=== PATIENT | male | born 1945 | race Caucasian/White ===

== ENCOUNTER 2018-10-04 05:45 | Emergency (ER) | payer OTHER ==
--- OUTSIDE RECORDS SUMMARY | 2018-10-04 05:47 | XMS REPORT | Clinical Summary ---
:1945 Author Organization [facility] Address [address] [place] [address] Care Team Providers Name Role Phone Jeffrey Primary Care Provider Allergies Active Allergy Reactions Severity Noted Date Comments Levofloxacin Itching, Rash Low 06/09/2016 Medications Medication Sig Dispensed Refills Start Date End Date Status atorvastatin 40 mg every evening 0 05/13/2016 Active (LIPITOR) 40 MG . tablet furosemide (LASIX) 40 Take 80 mg by mouth 0 05/18/2016 Active MG tablet daily . cyclobenzaprine Take 20 mg by mouth 0 Active (FLEXERIL) 10 MG as needed for Muscle tabletIndications: spasms . Muscle Spasm metFORMIN Take 1,000 mg by 0 Active (GLUCOPHAGE) 1000 MG mouth 2 (two) times tablet daily with breakfast and dinner. losartan (COZAAR) 50 Take 50 mg by mouth 0 Active MG tablet daily. gabapentin Take 300 mg by mouth 0 Active (NEURONTIN) 300 MG as needed . capsule acetaminophen-codeine Take 1 tablet by 0 Active (TYLENOL #3) 300-30 mouth every 4 (four) mg per tablet hours as needed for Pain. glimepiride (AMARYL) Take 4 mg by mouth 0 Active 4 MG tablet every morning before breakfast. MELOXICAM ORAL Take 10 mg by mouth 0 Active daily. clopidogrel (PLAVIX) Take 75 mg by mouth 0 Active 75 mg tablet daily. insulin 70/30, Inject 18 Units 0 Active insulin NPH-insulin subcutaneously 2 regular, (HUMULIN (two) times daily 70/30,NOVOLIN 70/30) before meals PER 100 unit/mL (70-30) SLIDING SCALE . injection Active Problems Problem Noted Date Status post amputation of lesser toe, right 08/28/2016 Overview: post op- amputation hallux 2nd toe, right foot Non-healing surgical wound, subsequent encounter 08/28/2016 Overview: Non healing wound post amputation 2nd digit, right foot. PAD (peripheral artery disease) 08/28/2016 PVD (peripheral vascular disease) 06/09/2016 Social History Tobacco Use Types Packs/Day Years Used Date Current Some Day Smoker 0.5 10 Smokeless Tobacco: Never Used Tobacco Cessation: Ready to Quit: No; Counseling Given: Yes Alcohol Use Drinks/Week oz/Week Comments Yes 6 Standard drinks or equivalent 3.0 Sex Assigned at Date Recorded Not on file Job Start Date Occupation Industry Not on file Not on file Not on file Travel History Travel Start Travel End No recent travel history available. Last Filed Vital Signs Not on file Plan of Treatment Not on file Implants Implanted Type Area Rig Manager Device Shelf Model / Identifier Expiration Serial / Lot Date Stent Epic [id number] - [id number] Stents-Per Right: WEED [id number] / Implanted: Qty: 1 on 06/10/2016 by Aman Colunga MD ipheral Leg SCI: PERIPHERAL / INTERV [id number] Grft José Mrtrstm 200mg [id number] - [id number] Tissue Right: [employer] 2017 [id number] / Implanted: Qty: 1 on 06/12/2016 by Antoine Mac, DPM Graft/Subs Foot / titute [id number] Tissue Nucell Lg W/Matrix Nc-1002 - [id number] Tissue Right: NUTECH MED NC-1002 / Implanted: Qty: 1 on 06/12/2016 by Antoine Mac, DPM Graft/Subs Foot / titute [id number] Grft José Mrtrstm 500 Mg [id number] - [id number] Tissue Right: [employer] [id number] / Implanted: Qty: 1 on 08/28/2016 by Antoine Mac, DPM Graft/Subs Toe [id number] / titute [id number] Tissue Nucell Med W/Matrix Nc-1001 - [id number] Tissue Right: NUTE[employer] MED 03/05/2017 NC-1001 / Implanted: Qty: 1 on 08/28/2016 by Antoine Mac DPM Graft/Subs Toe [id number] / titute Results Not on fileafter 10/03/2017 Insurance Payer Benefit Plan / Group Subscriber ID Type Phone Address CARE IMPROVEMENT MEDICARE MGD CARE IMPROVEMENT PLUS xxxxxxxxx CARE Advance Directives For more information, please contact:[address] [phone] Code Status Date Activated Date Inactivated Comments Full Code 06/10/2016 4:34 PM 06/13/2016 7:26 PM This code status was determined by: Patient Full Code 06/09/2016 8:54 PM 06/10/2016 4:34 PM This code status was determined by: Patient
[2018-10-04] MEDS ORDERED: IPRATROPIUM BROM 0.5MG/2.5ML ONE (06:09)
[2018-10-04] MEDS ORDERED: LEVALBUTEROL 1.25 MG/3 ML NEB ONE (06:10)
[2018-10-04 07:15] LABS: Absolute Lymphocytes (CBC) 1.6 K/uL (0.7-4.9); Absolute Monocytes 0.7 K/uL (0.1-1.3); Absolute Neutrophil 7.7 K/uL (1.8-8.0); Basophils % 1.2 % (0-1.3); Eosinophils % 6.9 % (0-4.4); Hematocrit 44.5 % (39.6-49.0); Lymphocytes % 14.5 % (15.3-44.8); MCH 30.8 pg (27.0-35.0); MCV 94.1 fL (80-100); MPV 10.3 fL (7.6-11.3); Monocytes % 6.8 % (3.3-12.3); RBC Red Blood Cell Count 4.72 M/uL (4.33-5.43)
[2018-10-04 07:16] LABS: Protime INR 0.99
[2018-10-04 07:52] LABS: Troponin I 0.03 ng/mL (0.0-0.045)
--- NOTE | 2018-10-04 08:34 | RAD REPORT ---
EXAM DESCRIPTION: Tiago Single View10/04/2018 7:19 am CLINICAL HISTORY: Cough COMPARISON: 2016 FINDINGS: The lungs appear clear of acute infiltrate. The heart is normal size IMPRESSION: No acute abnormalities displayed
--- NOTE | 2018-10-04 10:23 | RAD REPORT ---
EXAM DESCRIPTION: CT - Chest For Pe Angio - 10/04/2018 10:08 am CLINICAL HISTORY: Chest pain. dyspnea COMPARISON: No comparisons TECHNIQUE: CT angiogram of the pulmonary arteries was performed with MIP. All CT scans are performed using dose optimization technique as appropriate and may include automated exposure control or mA/KV adjustment according to patient size. FINDINGS: No evidence of pulmonary thromboembolism. No acute aortic finding demonstrated. Mild interstitial pulmonary edema. The heart is mildly enlarged in size. No significant pericardial or pleural fluid. Prominent degenerative changes are present involving the thoracic spine. IMPRESSION: No evidence of pulmonary thromboembolism. Mild interstitial pulmonary edema.
--- NOTE | 2018-10-04 10:44 | ER ---
Nurse's Notes [facility] Name: Chad Reyna Jr Age: 72 yrs Sex: Male : 1945 Arrival Date: 10/04/2018 Time: 05:46 Bed 18 Private MD: Diagnosis: Pulmonary edema-mild CHF;Unspecified combined systolic (congestive) and diastolic (congestive) heart failure;Bronchitis, not specified as acute or chronic Presentation: 10/04 05:45 Presenting complaint: Patient states: that he has been having cough with sputum for fc over one week with shortness of breath that is getting worse. Denies and fever. Positive for mid back pain. Transition of care: patient was not received from another setting of care. Onset of symptoms was September 27, 2018. Risk Assessment: Do you want to hurt yourself or someone else? Patient reports no desire to harm self or others. Initial Sepsis Screen: Does the patient meet any 2 criteria? No. Patient's initial sepsis screen is negative. Does the patient have a suspected source of infection? No. Patient's initial sepsis screen is negative. Care prior to arrival: None. 05:45 Method Of Arrival: Wheelchair 05:45 Acuity: SANDOVAL 3 fc Historical: - Allergies: 06:10 Levofloxacin; fc - Home Meds: 06:10 glimepiride 4 mg Oral tab 1 tab BID [Active]; spironolactone 25 mg Oral tab 1 tab 2 fc times per day [Active]; metformin 1,000 mg Oral tab 1 tab 2 times per day [Active]; atorvastatin 40 mg Oral tab At bedtime. [Active]; losartan 50 mg oral tab 1 tab once daily [Active]; clopidogrel 75 mg Oral tab 1 tab once daily [Active]; meloxicam 15 mg Oral tab 1 tab once daily [Active]; Humulin 70/30 100 unit/mL (70-30) Sub-Q susp as needed [Active]; - PMHx: 06:10 Diabetes - NIDDM; CHF; CVA; Rheumatoid Arthritis; Arthritis; peripheral neuropathy; fc Pneumonia; Hyperlipidemia; - PSHx: 06:10 leg stents; foot surg; arm surg; fc - Immunization history:: Last tetanus immunization: unknown, Flu vaccine is not up to date. - Social history:: Smoking status: Patient uses tobacco products, smokes one-half pack cigarettes per day, Patient uses alcohol, occasionally. - Ebola Screening: : Patient negative for fever greater than or equal to 101.5 degrees Fahrenheit, and additional compatible Ebola Virus Disease symptoms Patient denies exposure to infectious person Patient denies travel to an Ebola-affected area in the 21 days before illness onset. Screenin:45 Abuse screen: Denies threats or abuse. Nutritional screening: No deficits noted. fc Tuberculosis screening: No symptoms or risk factors identified. Fall Risk Fall in past 12 months (25 points). Secondary diagnosis (15 points) CVA, No IV (0 pts). Ambulatory Aid- Crutches/Cane/Walker (15 pts). Gait- Weak (10 pts.). Mental Status- Overestimates/Forgets Limitations (15 pts.). Total Herrera Fall Scale indicates High Risk Score (45 or more points). Fall prevention measures have been instituted. Side Rails Up X 2 Placed Close to Nursing Station Frequent Obs/Assessments Occuring Family Present and informed to notify staff if the need to leave the bedside As available patient and family educated on Fall Prevention Program and Strategies. Assessment: 05:50 General: Appears in no apparent distress. uncomfortable, Behavior is calm, cooperative, jb4 appropriate for age. Pain: Complains of pain in left breast Pain radiates to left subscapular area. Neuro: Level of Consciousness is awake, alert, obeys commands, Oriented to person, place, time, situation. Cardiovascular: Heart tones S1 S2 present Patient's skin is warm and dry. Rhythm is sinus rhythm. Respiratory: Airway is patent Respiratory effort is even, labored, Respiratory pattern is regular, symmetrical, Breath sounds are clear in right upper lobe, left upper lobe, right middle lobe, right lower lobe, left posterior upper lobe, right posterior upper lobe, right posterior middle lobe and right posterior lower lobe Breath sounds with crackles in left lower lobe and left posterior lower lobe. GI: No signs and/or symptoms were reported involving the gastrointestinal system. : No signs and/or symptoms were reported regarding the genitourinary system. EENT: No signs and/or symptoms were reported regarding the EENT system. Derm: Skin is intact, Skin is pink, warm \T\ dry. Musculoskeletal: Circulation, motion, and sensation intact. 06:45 Reassessment: Patient appears in no apparent distress at this time. Patient and/or jb4 family updated on plan of care and expected duration. Pain level reassessed. Patient is alert, oriented x 3, equal unlabored respirations, skin warm/dry/pink. 07:15 Reassessment: Patient and/or family updated on plan of care and expected duration. Pain jl7 level reassessed. Patient is alert, oriented x 3, equal unlabored respirations, skin warm/dry/pink. Patient states symptoms have improved. Cardiovascular: Heart tones S1 S2 present Patient's skin is warm and dry. Respiratory: Airway is patent Respiratory effort is even, unlabored, Respiratory pattern is regular, symmetrical, Breath sounds with rhonchi in left lower lobe and right lower lobe. 08:15 Reassessment: Patient appears in no apparent distress at this time. No changes from jl7 previously documented assessment. Patient and/or family updated on plan of care and expected duration. Pain level reassessed. Patient is alert, oriented x 3, equal unlabored respirations, skin warm/dry/pink. 09:15 Reassessment: Patient appears in no apparent distress at this time. Patient and/or jl7 family updated on plan of care and expected duration. Pain level reassessed. Patient is alert, oriented x 3, equal unlabored respirations, skin warm/dry/pink. 10:04 Reassessment: Patient appears in no apparent distress at this time. Patient and/or jl7 family updated on plan of care and expected duration. Pain level reassessed. Patient is alert, oriented x 3, equal unlabored respirations, skin warm/dry/pink. Vital Signs: 05:45 BP 140 / 68; Pulse 89; Resp 16; Temp 97.9(O); Pulse Ox 93% on R/A; Weight 104.33 kg fc (R); Height 5 ft. 9 in. (175.26 cm) (R); Pain 8/10; 06:45 BP 131 / 72; Pulse 85; Resp 18; Pulse Ox 100% on Nebulizer Mask; 4 07:15 BP 152 / 69; Pulse 90; Resp 18 S; Pulse Ox 100% on Nebulizer Mask; 7 07:45 BP 143 / 64; Pulse 90; Resp 16 S; Pulse Ox 89% on R/A; 08:13 BP 139 / 62; Pulse 90; Resp 18 S; Pulse Ox 94% on 3 lpm NC; jl7 09:00 BP 183 / 77; Pulse 90; Resp 16; Pulse Ox 97% 3 lpm ; jl7 10:04 BP 149 / 95; Pulse 88; Resp 18 S; Pulse Ox 95% on R/A; jl7 11:05 BP 168 / 84; Pulse 88; Resp 16 S; Pulse Ox 96% on R/A; jl7 05:45 Body Mass Index 33.96 (104.33 kg, 175.26 cm) ED Course: 05:40 Inserted saline lock: 20 gauge in right antecubital area, using aseptic technique. jb4 Blood collected. 05:45 Arm band placed on Patient placed in an exam room, on a stretcher. 05:45 Patient has correct armband on for positive identification. Bed in low position. Call light in reach. Side rails up X2. library monitor on. Pulse ox on. NIBP on. 05:46 Patient arrived in ED. al2 05:51 Navya Griffin [facility]-C [facility]. kb 05:51 Loco Enciso MD is Attending Physician. kb 06:01 Brian Schulz, EZRA is Primary Nurse. jb4 06:04 EKG done, by ED staff, reviewed by Loco Enciso MD. 06:12 Triage completed. 07:00 X-ray completed. Portable x-ray completed in exam room. Patient tolerated procedure ag1 well. 09:[address] via wheelchair. jg6 11:06 No provider procedures requiring assistance completed. IV discontinued, intact, jl7 bleeding controlled, No redness/swelling at site. Pressure dressing applied. Administered Medications: 06:04 Drug: Xopenex (3) 1.25 mg Route: Inhalation; 07:00 Follow up: Response: No adverse reaction jl7 06:04 Drug: AtroVENT Aerosol 0.5 mg Route: Inhalation; 07:00 Follow up: Response: No adverse reaction jl7 Outcome: 10:43 Discharge ordered by . kb 11:06 Discharged to home ambulatory. jl7 11:06 Condition: stable 11:06 Discharge instructions given to patient, family, Instructed on discharge instructions, follow up and referral plans. medication usage, Demonstrated understanding of instructions, follow-up care, medications, Prescriptions given X 2. 11:06 Patient left the ED. jl7 Signatures: Navya Griffin FNP-C FNP-Ckb Chretien, Felicia RN RN Ivett Frias ag1 Brian Schulz, RN RN jb4 Deng Jean Baptiste, RN RN jl7 Alejandra Lin alTeresa Mireles jg6 Corrections: (The following items were deleted from the chart) : 06:45 General: Appears in no apparent distress. uncomfortable, Behavior is calm, jb4 cooperative, appropriate for age, jb4 : 06:45 Pain: Complains of pain in left breast Pain radiates to left subscapular area jb4 jb4 : 06:45 Neuro: Level of Consciousness is awake, alert, obeys commands, Oriented to jb4 person, place, time, situation, jb4 : 06:45 Cardiovascular: Heart tones S1 S2 present Patient's skin is warm and dry. Rhythm jb4 is sinus rhythm jb4 :45 Respiratory: Airway is patent Respiratory effort is even, labored, Respiratory jb4 pattern is regular, symmetrical, Breath sounds are clear in right upper lobe, left upper lobe, right middle lobe, right lower lobe, left posterior upper lobe, right posterior upper lobe, right posterior middle lobe and right posterior lower lobe Breath sounds with crackles in left lower lobe and left posterior lower lobe jb4 : 06:45 GI: No signs and/or symptoms were reported involving the gastrointestinal system. jb4 jb4 :45 : No signs and/or symptoms were reported regarding the genitourinary system. jb4jb4 : 06:45 EENT: No signs and/or symptoms were reported regarding the EENT system. jb4 jb4 06:45 Derm: Skin is intact, Skin is pink, warm \T\ dry. jb4 jb4 06:45 Musculoskeletal: Circulation, motion, and sensation intact. jb4 jb4
--- NOTE | 2018-10-04 10:44 | EDPHYS ---
Physician Documentation [facility] Name: Chad Reyna Jr Age: 72 yrs Sex: Male : 1945 Arrival Date: 10/04/2018 Time: 05:46 Bed 18 Private MD: ED Physician Loco Enciso HPI: 10/04 06:14 This 72 yrs old Male presents to ER via Wheelchair with complaints of kb Breathing Difficulty. 06:14 The patient has shortness of breath at rest, and the patient has a history of CHF. kb Onset: The symptoms/episode began/occurred 1 week(s) ago. Duration: The symptoms are continuous. The patient's shortness of breath is aggravated by exertion. Associated signs and symptoms: Pertinent positives: productive cough. Severity of symptoms: At their worst the symptoms were moderate in the emergency department the symptoms are unchanged. The patient has not experienced similar symptoms in the past. The patient has not recently seen a physician. Pt reports shortness of breath for over a week that got worse today. Reports it feels the same as when he had pneumonia and CHF. Attests to smoking a half a pack a day. Denies hx of COPD. c/o chronic pain that is worse in his back at this time. Historical: - Allergies: 06:10 Levofloxacin; fc - Home Meds: 06:10 glimepiride 4 mg Oral tab 1 tab BID [Active]; spironolactone 25 mg Oral tab 1 tab 2 fc times per day [Active]; metformin 1,000 mg Oral tab 1 tab 2 times per day [Active]; atorvastatin 40 mg Oral tab At bedtime. [Active]; losartan 50 mg oral tab 1 tab once daily [Active]; clopidogrel 75 mg Oral tab 1 tab once daily [Active]; meloxicam 15 mg Oral tab 1 tab once daily [Active]; Humulin 70/30 100 unit/mL (70-30) Sub-Q susp as needed [Active]; - PMHx: 06:10 Diabetes - NIDDM; CHF; CVA; Rheumatoid Arthritis; Arthritis; peripheral neuropathy; fc Pneumonia; Hyperlipidemia; - PSHx: 06:10 leg stents; foot surg; arm surg; fc - Immunization history:: Last tetanus immunization: unknown, Flu vaccine is not up to date. - Social history:: Smoking status: Patient uses tobacco products, smokes one-half pack cigarettes per day, Patient uses alcohol, occasionally. - Ebola Screening: : Patient negative for fever greater than or equal to 101.5 degrees Fahrenheit, and additional compatible Ebola Virus Disease symptoms Patient denies exposure to infectious person Patient denies travel to an Ebola-affected area in the 21 days before illness onset. ROS: 06:14 Constitutional: Negative for fever, chills, and weight loss, Cardiovascular: Negative kb for chest pain, palpitations, and edema, Abdomen/GI: Negative for abdominal pain, nausea, vomiting, diarrhea, and constipation, : Negative for injury, bleeding, discharge, and swelling, MS/Extremity: Negative for injury and deformity, Skin: Negative for injury, rash, and discoloration, Neuro: Negative for headache, weakness, numbness, tingling, and seizure. 06:14 Respiratory: Positive for cough, unknown color of sputum, dyspnea on exertion, shortness of breath, Negative for hemoptysis, orthopnea, pleurisy, wheezing. Exam: 06:14 Constitutional: This is a well developed, well nourished patient who is awake, alert, kb and in no acute distress. Head/Face: Normocephalic, atraumatic. Chest/axilla: Normal chest wall appearance and motion. Nontender with no deformity. No lesions are appreciated. Cardiovascular: Regular rate and rhythm with a normal S1 and S2. No gallops, murmurs, or rubs. Normal PMI, no JVD. No pulse deficits. Respiratory: Lungs have equal breath sounds bilaterally, clear to auscultation and percussion. No rales, rhonchi or wheezes noted. No increased work of breathing, no retractions or nasal flaring. Abdomen/GI: Soft, non-tender, with normal bowel sounds. No distension or tympany. No guarding or rebound. No evidence of tenderness throughout. Skin: Warm, dry with normal turgor. Normal color with no rashes, no lesions, and no evidence of cellulitis. MS/ Extremity: Pulses equal, no cyanosis. Neurovascular intact. Full, normal range of motion. Neuro: Awake and alert, GCS 15, oriented to person, place, time, and situation. Cranial nerves II-XII grossly intact. Motor strength 5/5 in all extremities. Sensory grossly intact. Cerebellar exam normal. Normal gait. Vital Signs: 05:45 BP 140 / 68; Pulse 89; Resp 16; Temp 97.9(O); Pulse Ox 93% on R/A; Weight 104.33 kg fc (R); Height 5 ft. 9 in. (175.26 cm) (R); Pain 8/10; 06:45 BP 131 / 72; Pulse 85; Resp 18; Pulse Ox 100% on Nebulizer Mask; jb4 07:15 BP 152 / 69; Pulse 90; Resp 18 S; Pulse Ox 100% on Nebulizer Mask; jl7 07:45 BP 143 / 64; Pulse 90; Resp 16 S; Pulse Ox 89% on R/A; jl7 08:13 BP 139 / 62; Pulse 90; Resp 18 S; Pulse Ox 94% on 3 lpm NC; jl7 09:00 BP 183 / 77; Pulse 90; Resp 16; Pulse Ox 97% 3 lpm ; jl7 10:04 BP 149 / 95; Pulse 88; Resp 18 S; Pulse Ox 95% on R/A; jl7 11:05 BP 168 / 84; Pulse 88; Resp 16 S; Pulse Ox 96% on R/A; jl7 05:45 Body Mass Index 33.96 (104.33 kg, 175.26 cm) fc MDM: 05:51 Patient medically screened. kb 06:13 Data reviewed: vital signs, nurses notes. Data interpreted: Pulse oximetry: on room air kb is 93 %. Interpretation: borderline. 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 10/04 05:55 Order name: XRAY Chest (1 view) kb 10/04 07:16 Order name: CBC with Automated Diff; Complete Time: 07:16 EDMS 10/04 07:16 Order name: Protime (+INR); Complete Time: 07:16 EDMS 10/04 07:25 Order name: Basic Metabolic Panel; Complete Time: 08:17 EDMS 10/04 07:25 Order name: NT PRO-BNP; Complete Time: 08:17 EDMS 10/04 07:25 Order name: Magnesium; Complete Time: 08:17 EDMS 10/04 07:53 Order name: Troponin I; Complete Time: 08:17 EDMS 10/04 08:28 Order name: CT Chest For PE Angio kb 10/04 05:55 Order name: EKG; Complete Time: 10:32 kb 10/04 05:55 Order name: Cardiac monitoring; Complete Time: 06:16 kb 10/04 05:55 Order name: EKG - Nurse/Tech; Complete Time: 06:16 kb 10/04 05:55 Order name: IV Saline Lock; Complete Time: 06:16 kb 10/04 05:55 Order name: Labs collected and sent; Complete Time: 06:16 kb 10/04 05:55 Order name: O2 Per Protocol; Complete Time: 06:02 kb 10/04 05:55 Order name: O2 Sat Monitoring; Complete Time: 06:16 kb 10/04 08:34 Order name: RAD; Complete Time: 08:34 EDMS 10/04 10:47 Order name: CT; Complete Time: 10:49 EDMS Administered Medications: 06:04 Drug: Xopenex (3) 1.25 mg Route: Inhalation; 07:00 Follow up: Response: No adverse reaction jl 06:04 Drug: AtroVENT Aerosol 0.5 mg Route: Inhalation; 07:00 Follow up: Response: No adverse reaction jl7 Disposition: 11:28 Co-signature as Attending Physician, Loco Enciso MD I agree with the assessment and miladis plan of care. Disposition: 10/04/18 10:43 Discharged to Home. Impression: Pulmonary edema - mild CHF, Unspecified combined systolic (congestive) and diastolic (congestive) heart failure, Bronchitis, not specified as acute or chronic. - Condition is Stable. - Discharge Instructions: Acute Bronchitis, [id number], Heart Failure, [id number]. - Prescriptions for Albuterol Sulfate 90 mcg/actuation - inhale 1-2 puff by INHALATION route every 4-6 hours; 1 Inhaler. Zithromax 500 mg Oral Tablet - take 1 tablet by ORAL route once daily for 5 days; 5 tablet. - Medication Reconciliation Form, Thank You Letter, Antibiotic Education, Prescription Opioid Use form. - Follow up: Emergency Department; When: As needed; Reason: Worsening of condition. Follow up: Private Physician; When: 2 - 3 days; Reason: Recheck today's complaints, Continuance of care, Re-evaluation by your physician. Signatures: Dispatcher [employer] Navya Feldman, ADRIANA-Stephie WRIGHT-Loco Childers MD MD cha Chretien, Felicia, RN RN fc Deng Jean Baptiste RN RN jl7 Corrections: (The following items were deleted from the chart) 06:16 06:14 Pt reports shortness of breath for over a week that got worse today. Reports it kb feels the same as when he had pneumonia and CHF. Attests to smoking a half a pack a day. Denies hx of COPD.. kb 11:06 10:43 10/04/2018 10:43 Discharged to Home. Impression: Pulmonary edema - mild CHF; jl7 Unspecified combined systolic (congestive) and diastolic (congestive) heart failure; Bronchitis, not specified as acute or chronic. Condition is Stable. Discharge Instructions: Heart Failure, [id number]. Forms are Medication Reconciliation Form, Thank You Letter, Antibiotic Education, Prescription Opioid Use. Follow up: Emergency Department; When: As needed; Reason: Worsening of condition. Follow up: Private Physician; When: 2 - 3 days; Reason: Recheck today's complaints, Continuance of care, Re-evaluation by your physician. kb
[2018-10-04 12:41] VITALS: TEMP 97.9
[2018-10-04 12:50] VITALS: BP 168/84; O2SAT 96
--- NOTE | 2018-10-04 15:23 | EKG ---
Test Date: 2018-10-04 Test Time: 07:08:39 Inspector Of Dredging: TAMARA MEASUREMENT RESULTS: Intervals: Rate: 75 SC: 194 QRSD: 148 QT: 462 QTc: 515 [place]: P: 59 SC: 194 QRS: -62 T: 13 INTERPRETIVE STATEMENTS: Normal sinus rhythm Left axis deviation Right bundle branch block Inferior infarct, age undetermined Abnormal ECG Compared to ECG 06/03/2016 12:16:49 Left-axis deviation now present Right bundle-branch block now present Atrial premature complex(es) no longer present First degree AV block no longer present Myocardial infarct finding still present Electronically Signed On 10-04-18 15:23:01 LEAD GENERATION REPRESENTATIVE by Johnson Ma
== END 2018-10-04 11:06 | disposition home or self-care (01) ==
LOC: ER 05:45
DX: I50.40 Unspecified combined systolic (congestive) and diastolic (congestive) heart failure (principal); J40 Bronchitis, not specified as acute or chronic; E13.42 Other specified diabetes mellitus with diabetic polyneuropathy; E78.5 Hyperlipidemia, unspecified; M06.9 Rheumatoid arthritis, unspecified; M19.90 Unspecified osteoarthritis, unspecified site; F17.210 Nicotine dependence, cigarettes, uncomplicated; I45.10 Unspecified right bundle-branch block; R94.31 Abnormal electrocardiogram [ECG] [EKG]; I25.2 Old myocardial infarction; Z79.4 Long term (current) use of insulin; Z79.1 Long term (current) use of non-steroidal anti-inflammatories (NSAID); Z79.899 Other long term (current) drug therapy
CPT/HCPCS: 36415; 71045; 71275; 80048; 83735; 83880; 84484; 85025; 85610; 93005; 99285; Q9967

== ENCOUNTER 2018-12-19 16:36 | Inpatient (IN) | payer OTHER ==
--- OUTSIDE RECORDS SUMMARY | 2018-12-19 16:38 | XMS REPORT | Clinical Summary ---
:1945 Author Organization [facility] Address [address] [place] [address] Care Team Providers Name Role Phone Jeffrey [...] Not on file Implants Implanted Type Area Locker Operator Device Shelf Model / Identifier Expiration Serial / Lot Date Stent Epic [id number] - [id number] Stents-Per Right: [id number] [id number] / Implanted: Qty: 1 on 06/10/2016 by Aman Colunga MD ipheral Leg SCI: PERIPHERAL / INTERV [id number] Grft José Mrtrstm 200mg [id number] - [id number] Tissue Right: [employer] 2017 [id number] / Implanted: Qty: 1 on 06/12/2016 by Antoine Mac, DPM Graft/Subs Foot / titute [id number] Tissue Nucell Lg W/Matrix Nc-1002 - [id number] Tissue Right: NUTECH MED NC-1002 / Implanted: Qty: 1 on 06/12/2016 by Antoine Mac, DPM Graft/Subs Foot / titute [id number] Grft José Mrtrstm 500 Mg [id number] - [id number] Tissue Right: [employer] [id number] / Implanted: Qty: 1 on 08/28/2016 by Antoine Mac, DPM Graft/Subs Toe [id number] / titute [id number] Tissue Nucell Med W/Matrix Nc-1001 - [id number] Tissue Right: NUTECH MED 03/05/2017 NC-1001 / Implanted: Qty: 1 on 08/28/2016 by Antoine Mac DPM Graft/Subs Toe [id number] / titute Results Not on fileafter 12/18/2017 Insurance Payer Benefit Plan / Group Subscriber ID Type Phone Address CARE IMPROVEMENT MEDICARE MGD CARE IMPROVEMENT PLUS xxxxxxxxx CARE Advance Directives For more information, please contact:[address] [phone] Code Status Date Activated Date Inactivated Comments Full Code 06/10/2016 4:34 PM 06/13/2016 7:26 PM This code status was determined by: Patient Full Code 06/09/2016 8:54 PM 06/10/2016 4:34 PM This code status was determined by: Patient
[2018-12-19] MEDS ORDERED: FUROSEMIDE 40 MG/4 ML VIAL ONE (17:04)
[2018-12-19] MEDS ORDERED: FUROSEMIDE 100 MG/10 ML VIAL IV ONE (17:05)
[2018-12-19 17:07] LABS: Absolute Lymphocytes (CBC) 1.4 K/uL (0.7-4.9); Absolute Monocytes 0.6 K/uL (0.1-1.3); Absolute Neutrophil 2.9 K/uL (1.8-8.0); Basophils % 1.4 % (0-1.3); Eosinophils % 7.5 % (0-4.4); Hematocrit 41.5 % (39.6-49.0); Lymphocytes % 26.7 % (15.3-44.8); MPV 9.2 fL (7.6-11.3); Monocytes % 10.5 % (3.3-12.3); RBC Red Blood Cell Count 4.53 M/uL (4.33-5.43)
[2018-12-19 17:13] LABS: Protime INR 1.1
[2018-12-19 17:29] LABS: Albumin 3.4 g/dL (3.4-5.0); Bilirubin Direct 0.1 mg/dL (0-0.2); Bilirubin Total 0.3 mg/dL (0.2-1.0); Magnesium 2.2 mg/dL (1.8-2.4); Potassium 5.3 mmol/L (3.5-5.1); Protein, Total 7.2 g/dL (6.4-8.2); Troponin (Emerg Dept Use Only) 0.05 ng/mL (0.0-0.045)
[2018-12-19 17:39] LABS: Urine Blood NEGATIVE (NEG); Urine Glucose 2+ (NEG); Urine Protein NEGATIVE (NEG); Urine Specific Gravity 1.015 (1.005-1.030); Urine pH 6.5 (5.0-7.0)
--- NOTE | 2018-12-19 18:06 | ER ---
Nurse's Notes [facility] Name: Chad Reyna Jr Age: 72 yrs Sex: Male : 1945 Arrival Date: 12/19/2018 Time: 16:38 Bed 6 Private MD: Diagnosis: Acute systolic (congestive) heart failure;Anasarca ;Hyperkalemia;Chronic kidney disease (CKD);Atrial fibrillation and flutter Presentation: 12/19 16:40 Presenting complaint: Patient states: SOB and weight gain of approximately 20 lbs over aa5 the last 1-2 weeks. 16:40 Transition of care: patient was not received from another setting of care. Onset of aa5 symptoms was November 2018. Care prior to arrival: None. 16:40 Method Of Arrival: Wheelchair aa5 16:40 Acuity: SANDOVAL 3 aa5 19:30 Risk Assessment: Do you want to hurt yourself or someone else? Patient reports no ea desire to harm self or others. Initial Sepsis Screen: Does the patient meet any 2 criteria? RR > 20 per min. Does the patient have a suspected source of infection? No. Patient's initial sepsis screen is negative. Historical: - Allergies: 16:40 Levofloxacin; aa5 - Home Meds: 17:05 atorvastatin 40 mg Oral tab At bedtime. [Active]; clopidogrel 75 mg Oral tab 1 tab once ch daily [Active]; glimepiride 4 mg Oral tab 1 tab BID [Active]; Humulin 70/30 100 unit/mL (70-30) Sub-Q susp as needed [Active]; losartan 50 mg Oral tab 1 tab once daily [Active]; meloxicam 15 mg Oral tab 1 tab once daily [Active]; metformin 1,000 mg Oral tab 1 tab 2 times per day [Active]; spironolactone 25 mg Oral tab 1 tab 2 times per day [Active]; - PMHx: 16:40 Arthritis; CHF; CVA; Diabetes - NIDDM; Hyperlipidemia; PERIPHERAL NEUROPATHY; aa5 Pneumonia; Rheumatoid Arthritis; - PSHx: 16:40 leg stents; foot surg; arm surg; aa5 - Immunization history:: Pneumococcal vaccine is not up to date, Flu vaccine is not up to date. - Social history:: Smoking status: Patient uses tobacco products, smokes one-half pack cigarettes per day. - Ebola Screening: : No symptoms or risks identified at this time. Screenin:05 Abuse screen: Denies threats or abuse. Denies injuries from another. Nutritional ch screening: No deficits noted. Tuberculosis screening: No symptoms or risk factors identified. Fall Risk Secondary diagnosis (15 points) IV access (20 points). Ambulatory Aid- None/Bed Rest/Nurse Assist (0 pts). Gait- Weak (10 pts.). Mental Status- Overestimates/Forgets Limitations (15 pts.). Total Herrera Fall Scale indicates High Risk Score (45 or more points). Fall prevention measures have been instituted. Side Rails Up X 2 Frequent Obs/Assessments Occuring Family Present and informed to notify staff if the need to leave the bedside As available patient and family educated on Fall Prevention Program and Strategies. Assessment: 16:51 General: Appears in no apparent distress. uncomfortable, Behavior is appropriate for ch age, agitated. Pain: Denies pain. Neuro: Level of Consciousness is awake, alert, obeys commands, Oriented to person, place, time, situation, Welding Specialist are equal bilaterally Moves all extremities. Full function pt states he had a stroke, and does not have feeling on his R side, there for he is somewhat off balance. . Gait is shuffling, Speech is normal, Facial symmetry appears normal, Facial symmetry: tongue is midline. Cardiovascular: Heart tones muffled Capillary refill is sluggish in bilateral fingers toes Clubbing of nail beds is present Pulses are all present. Edema pitting to right upper arm, right forearm, right wrist, right hand, right fingers, waist, pubic area, left upper thigh, left lower thigh, left knee, left midcalf, left ankle, left upper arm, left forearm, left wrist, left hand, right upper thigh, right lower thigh, right knee, right midcalf and right ankle pt has generalized edema, including around eyes, lips, hands arms. Cardiovascular: Respiratory: Reports shortness of breath at rest labored breathing Airway is patent Trachea midline Respiratory effort is even, labored, Respiratory pattern is tachypnea Breath sounds are diminished bilaterally. GI: Abdomen is distended, obese, Bowel sounds present X 4 quads. Abd is non tender pt abdomen has obvious edema. : No signs and/or symptoms were reported regarding the genitourinary system. Derm: Skin is fragile, Skin is dry, Skin is pale, Skin temperature is warm. Musculoskeletal: Capillary refill is > 3 seconds, in bilateral fingers. toes. 17:48 Reassessment: Patient appears in no apparent distress at this time. pt has been to the restroom three times via wheelchair. pt refuses to use urinal, states he cannot pee in that. we offer a BSC, pt refuses that. pt states he just wants to walk to restroom. pt educated that he is too sick to walk to the restroom, if he walks around he could fall, have a heart attack, go into a heart arrythmia, or become unable to breathe. pt states he will use the call greene and be rolled to the restroom. 18:40 Reassessment: Patient appears in no apparent distress at this time. Patient and/or family updated on plan of care and expected duration. Pain level reassessed. pt has urinated three times in the restroom, and 1100mL into urinal. pt states he can breathe better. Patient states feeling better. Patient states symptoms have improved. 19:30 General: Appears in no apparent distress. Behavior is appropriate for age. Pain: Denies ea pain. Neuro: Level of Consciousness is awake, alert, obeys commands. Cardiovascular: Patient's skin is warm and dry. Cardiovascular: Pitting edema noted to nick upper and lower extremities . Respiratory: Airway is patent Respiratory effort is even, unlabored, Respiratory pattern is regular, symmetrical, Breath sounds are diminished bilaterally. GI: Abdomen is distended, obese, Bowel sounds present X 4 quads. Abd is non tender X 4 quads. : No signs and/or symptoms were reported regarding the genitourinary system. Derm: Skin is fragile, Skin is dry, Skin is pale, Skin temperature is warm. Musculoskeletal: Capillary refill is > 3 seconds. 20:20 Reassessment: Patient and/or family updated on plan of care and expected duration. Pain ea level reassessed. Patient is alert, oriented x 3, equal unlabored respirations, skin warm/dry/pink. Patient states feeling better. Patient states symptoms have improved. Vital Signs: 16:41 Weight 108.86 kg (R); Height 5 ft. 8 in. (172.72 cm) (R); aa5 17:05 BP 160 / 89; Pulse 122; Resp 28; Temp 98.7; Pulse Ox 99% on R/A; Pain 0/10; ch 18:00 BP 158 / 106; Pulse 106; Resp 24; Pulse Ox 94% on R/A; Pain 0/10; ch 19:00 BP 139 / 96; Pulse 100; Resp 22; Pulse Ox 97% on R/A; Pain 0/10; ch 20:17 BP 159 / 90; Pulse 103; Resp 20; Pulse Ox 97% on R/A; ea 16:41 Body Mass Index 36.49 (108.86 kg, 172.72 cm) aa5 17:05 pt states he doesnt hurt, he just feels full, like everything is pressing on him ch ED Course: 16:38 Patient arrived in ED. rg4 16:40 Arm band placed on Patient placed in an exam room, on a stretcher. aa5 16:42 Dixon Santamaria PA is PHCP. jr8 16:42 Simba Ko MD is Attending Physician. jr8 16:46 Triage completed. aa5 16:51 Marnie Brizuela, EZRA is Primary Nurse. ch 17:05 No apparent distress. Resting quietly. ch 17:05 Patient has correct armband on for positive identification. Placed in gown. Bed in low ch position. Call light in reach. Adult w/ patient. pt states he cannot lay in the bed, he has to sit. pt states he cannot breathe when he is laying down, or when his feet are elevated. pt educated on fall risk, and on not getting up on his own. family at bedside, states she wont leave him. pt agrees not to get up without assistance. tele tech on. Pulse ox on. NIBP on. Warm blanket given. 17:20 No provider procedures requiring assistance completed. Inserted saline lock: 20 gauge ch in left forearm, using aseptic technique. Blood collected. 17:32 Urine collected: clean catch specimen, cloudy, berkley colored, EKG done, by ED staff, jb1 reviewed by Dixon HORTON. 18:03 Jimmy Sheth MD is Hospitalizing Provider. jr8 19:00 Report given to Cici. 20:09 Anna López, RN is Primary Nurse. ea 20:18 Patient admitted, IV remains in place. ea Administered Medications: 17:00 Drug: Lasix 60 mg Route: IVP; Site: left forearm; ch 17:47 Follow up: Response: No adverse reaction ch 18:10 Drug: Insulin Regular Human 10 units {Co-Signature: ca1 (Helene Nicholas RN).} Route: IVP; ch Site: left forearm; 19:35 Follow up: Response: No adverse reaction; Temperature is decreased ch 18:15 Drug: Metoprolol 5 mg Route: IVP; Site: left forearm; ch 19:34 Follow up: Response: No adverse reaction ch 18:25 Drug: Lovenox 100 mg Route: Sub-Q; Site: abdomen; ch 19:35 Follow up: Response: No adverse reaction; Blood sugar is lowered Point of Care Testing: Blood Glucose: 19:17 Blood Glucose: 158 mg/dL; ea Ranges: Outcome: 18:05 Decision to Hospitalize by Provider. enrique 20:17 Instructed on the need for admit, Demonstrated understanding of instructions. ea 20:33 Admitted to Tele accompanied by tech, via wheelchair, room 230, with chart, Report bb called to Tank MUNGUIA 20:33 Condition: stable 20:56 Patient left the ED. ea Signatures: Omar Ewing jb1 Marnie Brizuela, RN RN Sharon Sandoval RN RN bb Joy Dias, RN RN [email or web address] Dixon Santamaria PA PA jr8 Garcia, Rubi rg4 Antunez, Elena, RN RN bryan Nicholas RN ca1
--- NOTE | 2018-12-19 18:06 | EDPHYS ---
Physician Documentation [facility] Name: Chad Reyna Jr Age: 72 yrs Sex: Male : 1945 Arrival Date: 12/19/2018 Time: 16:38 Bed 6 Private MD: ED Physician Simba Ko HPI: 12/19 17:47 This 72 yrs old Male presents to ER via Wheelchair with complaints of Feet jr8 Swelling, Breathing Difficulty. 17:47 The patient has shortness of breath at rest, with light activity. Onset: The jr8 symptoms/episode began/occurred gradually, 1 week(s) ago. Duration: The symptoms are continuous, and are steadily getting worse. The patient's shortness of breath is aggravated by supine position, talking, walking. Associated signs and symptoms: The patient has no apparent associated signs or symptoms. Severity of symptoms: At their worst the symptoms were moderate in the emergency department the symptoms are unchanged. The patient has experienced a previous episode. The patient has not recently seen a physician. Historical: - Allergies: 16:40 Levofloxacin; aa5 - Home Meds: 17:05 atorvastatin 40 mg Oral tab At bedtime. [Active]; clopidogrel 75 mg Oral tab 1 tab once ch daily [Active]; glimepiride 4 mg Oral tab 1 tab BID [Active]; Humulin 70/30 100 unit/mL (70-30) Sub-Q susp as needed [Active]; losartan 50 mg Oral tab 1 tab once daily [Active]; meloxicam 15 mg Oral tab 1 tab once daily [Active]; metformin 1,000 mg Oral tab 1 tab 2 times per day [Active]; spironolactone 25 mg Oral tab 1 tab 2 times per day [Active]; - PMHx: 16:40 Arthritis; CHF; CVA; Diabetes - NIDDM; Hyperlipidemia; PERIPHERAL NEUROPATHY; aa5 Pneumonia; Rheumatoid Arthritis; - PSHx: 16:40 leg stents; foot surg; arm surg; aa5 - Immunization history:: Pneumococcal vaccine is not up to date, Flu vaccine is not up to date. - Social history:: Smoking status: Patient uses tobacco products, smokes one-half pack cigarettes per day. - Ebola Screening: : No symptoms or risks identified at this time. ROS: 17:47 Eyes: Negative for injury, pain, redness, and discharge, ENT: Negative for injury, jr8 pain, and discharge, Neck: Negative for injury, pain, and swelling, Abdomen/GI: Negative for abdominal pain, nausea, vomiting, diarrhea, and constipation, Back: Negative for injury and pain, MS/Extremity: Negative for injury and deformity, Skin: Negative for injury, rash, and discoloration, Neuro: Negative for headache, weakness, numbness, tingling, and seizure. 17:47 Cardiovascular: Positive for edema, orthopnea. 17:47 Respiratory: Positive for dyspnea on exertion, orthopnea, shortness of breath. Exam: 17:47 Eyes: Pupils equal round and reactive to light, extra-ocular motions intact. Lids and jr8 lashes normal. Conjunctiva and sclera are non-icteric and not injected. Cornea within normal limits. Periorbital areas with no swelling, redness, or edema. ENT: Nares patent. No nasal discharge, no septal abnormalities noted. Tympanic membranes are normal and external auditory canals are clear. Oropharynx with no redness, swelling, or masses, exudates, or evidence of obstruction, uvula midline. Mucous membranes moist. Neck: Trachea midline, no thyromegaly or masses palpated, and no cervical lymphadenopathy. Supple, full range of motion without nuchal rigidity, or vertebral point tenderness. No Meningismus. Abdomen/GI: Soft, non-tender, with normal bowel sounds. No distension or tympany. No guarding or rebound. No evidence of tenderness throughout. Back: No spinal tenderness. No costovertebral tenderness. Full range of motion. Skin: Warm, dry with normal turgor. Normal color with no rashes, no lesions, and no evidence of cellulitis. MS/ Extremity: Pulses equal, no cyanosis. Neurovascular intact. Full, normal range of motion. Neuro: Awake and alert, GCS 15, oriented to person, place, time, and situation. Cranial nerves II-XII grossly intact. Motor strength 5/5 in all extremities. Sensory grossly intact. Cerebellar exam normal. Normal gait. 17:47 Cardiovascular: Rate: tachycardic, Rhythm: irregular, Pulses: Pulses are 2+ in right radial artery and left radial artery. Heart sounds: normal, normal S1and S2, no S3 or S4, no murmur, no rub, no gallop, Edema: 3+ edema to level of waist, pubic area, left upper thigh, left lower thigh, left knee, left midcalf, left ankle, left foot, right upper thigh, right lower thigh, right knee, right midcalf, right ankle and right foot. 17:47 Respiratory: the patient does not display signs of respiratory distress, Respirations: tachypnea, that is mild, Breath sounds: decreased breath sounds, that are mild, are located in both bases. Vital Signs: 16:41 Weight 108.86 kg (R); Height 5 ft. 8 in. (172.72 cm) (R); aa5 17:05 BP 160 / 89; Pulse 122; Resp 28; Temp 98.7; Pulse Ox 99% on R/A; Pain 0/10; ch 18:00 BP 158 / 106; Pulse 106; Resp 24; Pulse Ox 94% on R/A; Pain 0/10; ch 19:00 BP 139 / 96; Pulse 100; Resp 22; Pulse Ox 97% on R/A; Pain 0/10; ch 20:17 BP 159 / 90; Pulse 103; Resp 20; Pulse Ox 97% on R/A; ea 16:41 Body Mass Index 36.49 (108.86 kg, 172.72 cm) aa5 17:05 pt states he doesnt hurt, he just feels full, like everything is pressing on him ch MDM: 16:42 Patient medically screened. 8 17:51 Data reviewed: vital signs, nurses notes, lab test result(s), EKG, radiologic studies, jr8 plain films, and as a result, I will admit patient. Data interpreted: Pulse oximetry: on room air is 99 %. Interpretation: normal. Counseling: I had a detailed discussion with the patient and/or guardian regarding: the historical points, exam findings, and any diagnostic results supporting the discharge/admit diagnosis, lab results, radiology results, the need for further work-up and treatment in the hospital. Physician consultation: Jimmy Sheth MD was called at 17:51, was contacted at 17:51, regarding admission, to the medical/surgical unit. consult, patient's condition, and will see patient. 12/19 16:51 Order name: Basic Metabolic Panel 8 12/19 16:51 Order name: CBC with Diff jr8 12/19 16:51 Order name: LFT's jr8 12/19 16:51 Order name: Magnesium 12/19 16:51 Order name: NT PRO-BNP 12/19 16:51 Order name: PT-INR 12/19 16:51 Order name: Troponin (emerg Dept Use Only) 12/19 17:10 Order name: CBC with Automated Diff; Complete Time: 17:44 EDMS 12/19 17:16 Order name: Protime (+INR); Complete Time: 17:44 EDMS 12/19 17:29 Order name: Urine Dipstick--Ancillary (enter results) ms 12/19 17:30 Order name: Basic Metabolic Panel; Complete Time: 17:44 EDMS 12/19 17:30 Order name: Liver (Hepatic) Function; Complete Time: 17:44 EDMS 12/19 17:30 Order name: Troponin (Emerg Dept Use Only); Complete Time: 17:44 EDMS 12/19 17:30 Order name: NT PRO-BNP; Complete Time: 17:44 EDMS 12/19 16:51 Order name: XRAY Chest (1 view) 12/19 16:51 Order name: EKG; Complete Time: 16:55 12/19 16:51 Order name: Cardiac monitoring; Complete Time: 17:17 12/19 16:51 Order name: EKG - Nurse/Tech; Complete Time: 17:17 12/19 16:51 Order name: IV Saline Lock; Complete Time: 17:17 12/19 16:51 Order name: Labs collected and sent; Complete Time: 17:17 12/19 16:51 Order name: O2 Per Protocol; Complete Time: 17:17 12/19 16:51 Order name: O2 Sat Monitoring; Complete Time: 17:17 12/19 17:30 Order name: Magnesium; Complete Time: 17:44 EDMS 12/19 17:40 Order name: Urine Dipstick-Ancillary; Complete Time: 17:44 EDMS 12/19 20:24 Order name: RAD; Complete Time: 20:29 EDMS Administered Medications: 17:00 Drug: Lasix 60 mg Route: IVP; Site: left forearm; ch 17:47 Follow up: Response: No adverse reaction ch 18:10 Drug: Insulin Regular Human 10 units {Co-Signature: ca1 (Helene Nicholas RN).} Route: IVP; ch Site: left forearm; 19:35 Follow up: Response: No adverse reaction; Temperature is decreased ch 18:15 Drug: Metoprolol 5 mg Route: IVP; Site: left forearm; ch 19:34 Follow up: Response: No adverse reaction ch 18:25 Drug: Lovenox 100 mg Route: Sub-Q; Site: abdomen; ch 19:35 Follow up: Response: No adverse reaction; Blood sugar is lowered Point of Care Testing: Blood Glucose: 19:17 Blood Glucose: 158 mg/dL; ea Ranges: Critical Glucose Levels:Adult <50 mg/dl or >400 mg/dl <40 mg/dl or >180 mg/dl Disposition: 12/19/18 18:05 Hospitalization ordered by Jimmy Sheth for Inpatient Admission. Preliminary diagnosis are Acute systolic (congestive) heart failure, Anasarca , Hyperkalemia, Chronic kidney disease (CKD), Atrial fibrillation and flutter. - Bed requested for Telemetry/MedSurg (Inpatient). - Status is Inpatient Admission. ea - Condition is Stable. - Problem is new. - Symptoms have improved. UTI on Admission? No Addendum: 12/21/2018 03:40 Co-signature as Attending Physician, Simba Ko MD I agree with the assessment and t w4 plan of care. Signatures: Dispatcher [employer] EDMarnie Champagne, RN EZRA Xiomara Cruz RN RN Joy Dias RN RN aa5 Dixon Santamaria PA PA 8 Anna López RN Simba Peraza ea, MD MD tw4 Helene Nicholas RN ca1 Corrections: (The following items were deleted from the chart) 12/19 18:03 17:51 Physician consultation: Bin Bender MD was called at 17:51, was contacted at jr8 17:51, regarding admission, to the medical/surgical unit. consult, patient's condition, jr8 20:05 18:05 Hospitalization Ordered by Jimmy Sheth MD for Inpatient Admission. Preliminary mw diagnosis is Acute systolic (congestive) heart failure; Anasarca ; Hyperkalemia; Chronic kidney disease (CKD); Atrial fibrillation and flutter. Bed requested for Telemetry/MedSurg (Inpatient). Status is Inpatient Admission. Condition is Stable. Problem is new. Symptoms have improved. UTI on Admission? No. jr8 20:56 20:05 12/19/2018 18:05 Hospitalization Ordered by Jimmy Sheth MD for Inpatient ea Admission. Preliminary diagnosis is Acute systolic (congestive) heart failure; Anasarca ; Hyperkalemia; Chronic kidney disease (CKD); Atrial fibrillation and flutter. Bed requested for Telemetry/MedSurg (Inpatient). Status is Inpatient Admission. Condition is Stable. Problem is new. Symptoms have improved. UTI on Admission? No. mw
[2018-12-19] MEDS ORDERED: INSULIN -REGULAR HUMAN 50 UNIT/0.5 ML ML ONE (18:19)
[2018-12-19] MEDS ORDERED: ENOXAPARIN 100 MG/ML SYR SQ ONE (18:20)
[2018-12-19] MEDS ORDERED: METOPROLOL TARTRATE 5 MG/5 ML INJ IV ONE (18:20)
--- NOTE | 2018-12-19 20:23 | RAD REPORT ---
EXAM DESCRIPTION: RAD - Chest Single View - 12/19/2018 5:33 pm CLINICAL HISTORY: Shortness of breath COMPARISON: September 2018 TECHNIQUE: AP portable chest image was obtained 1726 hours . FINDINGS: Patchy opacification is present in the right lung base new from prior imaging. Cardiomegal y is present without significant vascular engorgement. Interstitial markings are prominent but no dif fuse or significant degree of pulmonary edema identifiable. No measurable pleural effusion and no pne umothorax. No acute bony abnormality seen. No acute aortic findings suspected. IMPRESSION: Patchy right base opacification is present. This has the appearance of early pneumonia ; however, history does not indicate an acute infectious process. Cardiomegaly without additional findings of significant failure or volume overload.
[2018-12-19] MEDS ORDERED: D50W 25 GM/50 ML SYRINGE IV PRN (20:34)
[2018-12-19] MEDS ORDERED: IPRATROPIUM BROM 0.5MG/2.5ML NEB PRN (20:34)
[2018-12-19] MEDS ORDERED: HYDROCODONE/APAP 5/325 MG TAB PO PRN (20:34)
[2018-12-19] MEDS ORDERED: ALBUTEROL 2.5 MG/3 ML NEB SOL NEB PRN (20:34)
[2018-12-19] MEDS ORDERED: GLUCAGON 1 MG/VIAL IM PRN (20:34)
[2018-12-19] MEDS ORDERED: ONDANSETRON 4 MG/2 ML VIAL IV PRN (20:34)
[2018-12-19] MEDS: INSULIN -REGULAR HUMAN 50 UNIT/0.5 ML ML SQ SCH (21:00)
[2018-12-19 22:43] VITALS: BMI 36.5
[2018-12-20 01:01] LABS: Urine Appearance CLEAR; Urine Bilirubin NEGATIVE (NEG); Urine Blood NEGATIVE (NEG); Urine Color YELLOW; Urine Glucose NEGATIVE (NEG); Urine Protein NEGATIVE (NEG); Urine Urobilinogen 0.2 mg/dL (0.2-1.0)
[2018-12-20 01:11] LABS: Urine Microscopic Reflex NO UMIC
[2018-12-20 06:09] LABS: Absolute Lymphocytes (CBC) 1.6 K/uL (0.7-4.9); Absolute Monocytes 0.6 K/uL (0.1-1.3); Absolute Neutrophil 2.6 K/uL (1.8-8.0); Basophils % 1.3 % (0-1.3); Hematocrit 39.1 % (39.6-49.0); Lymphocytes % 29.4 % (15.3-44.8); RBC Red Blood Cell Count 4.35 M/uL (4.33-5.43)
[2018-12-20 06:30] LABS: Potassium 4.6 mmol/L (3.5-5.1)
[2018-12-20] MEDS: INSULIN -REGULAR HUMAN 50 UNIT/0.5 ML ML SQ SCH ×4 (07:30→21:41)
[2018-12-20] MEDS: FUROSEMIDE 20 MG/ 2ML VIAL IV SCH ×2 (08:48→17:55)
--- NOTE | 2018-12-20 11:44 | EKG ---
Test Date: 2018-12-19 Test Time: 23:26:23 Retail Equipment Associate: RT MEASUREMENT RESULTS: Intervals: Rate: 105 DE: QRSD: 154 QT: 390 QTc: 515 [place]: P: DE: QRS: -58 T: 65 INTERPRETIVE STATEMENTS: Atrial fibrillation with rapid ventricular response Left axis deviation Right bundle branch block Inferior infarct, age undetermined Abnormal ECG Compared to ECG 12/19/2018 16:59:30 Atrial flutter no longer present Ventricular premature complex(es) no longer present Myocardial infarct finding still present Electronically Signed On 12-20-18 11:42:50 BODY ARTIST by Johan Hicks
--- NOTE | 2018-12-20 11:47 | EKG ---
Test Date: 2018-12-19 Test Time: 16:59:30 Online Merchandising Coordinator: SAMMI MEASUREMENT RESULTS: Intervals: Rate: 101 IN: QRSD: 156 QT: 412 QTc: 534 [place]: P: -72 IN: QRS: -61 T: 47 INTERPRETIVE STATEMENTS: Atrial flutter with variable AV block with premature ventricular or aberrantly conducted complexes Left axis deviation Right bundle branch block Possible Lateral infarct, age undetermined Inferior infarct, age undetermined Abnormal ECG Compared to ECG 10/04/2018 07:08:39 Ventricular premature complex(es) now present Sinus rhythm no longer present Myocardial infarct finding still present Electronically Signed On 12-20-18 11:43:07 HANDLE TURNER by Jhoan Hicks
--- NOTE | 2018-12-20 13:32 | P.HP ---
Certification for Inpatient Patient admitted to: Inpatient With expected LOS: >2 Midnights Patient will require the following post-hospital care: None Practitioner: I am a practitioner with admitting privileges, knowledge of patient current condition, hospital course, and medical plan of care. Services: Services provided to patient in accordance with Admission requirements found in Title 42 Section 412.3 of the Code of Federal Regulations Patient History Date of Service: 12/20/18 Primary Care Provider: Umesh Menezes Reason for admission: CHF exacerbation History of Present Illness: Patient is an office patient of Umesh Menezes He has been having increasing swelling in his legs. Increased exertional dyspnea. The patient has been sleeping in a chair as he gets short of breath lying flat. He denies missing any of his medcations. No increased fluid intake. He drinks 6 beers in a week. Which should not be a large fluid intake. He does smoke 1/2 ppd. He was found to be in atrial fib in the ER. This is not on his chart in the office. He normally see's Dr. Hicks. Allergies levofloxacin [From Levaquin] Allergy (Verified 12/19/18 21:17) Itching Home Medications: Aspirin 1 tab PO DAILY 12/19/18 Atorvastatin Calcium 1 tab PO BEDTIME 12/19/18 Glimepiride 1 tab PO DAILY 12/19/18 Losartan Potassium 1 tab PO DAILY 12/19/18 Meloxicam 15 mg PO DAILY 12/19/18 Metformin HCl 1 tab PO BID 12/19/18 Spironolactone 1 tab PO BID 12/19/18 - Past Medical/Surgical History Has patient received pneumonia vaccine in the past: No Diabetic: Yes -: CVA -: HTN -: CHF -: neuropathy -: degenerative disc -: hyperlipidemia -: NIDDM -: BRAINSTEM STROKE 1998 -: hernia repair -: tonsillectomy -: adenoidectomy -: Left shoulder repair -: umbilical hernia repair - Family History Father -: Cancer, Other (see notes) Notes: lymphoma Brother -: Lung disease, Cancer Sister -: Lung disease - Social History Smoking Status: Current every day smoker Alcohol use: Yes CD- Drugs: No Caffeine use: Yes Place of Residence: Home Review of Systems 10-point ROS is otherwise unremarkable Respiratory: SOB with Excertion Cardiovascular: Orthopnea, Paroxysmal Noc. Dyspnea, Edema (2+) Physical Examination - Vital Signs Temperature: 97.2 F Blood Pressure: 152/64 Pulse: 101 Respirations: 18 Pulse Ox (%): 96 - Physical Exam General: Alert, In no apparent distress HEENT: Atraumatic, PERRLA, Mucous membr. moist/pink, EOMI, Sclerae nonicteric Neck: Supple, 2+ carotid pulse no bruit, No LAD, Without JVD or thyroid abnormality Respiratory: Clear to auscultation bilaterally, Normal air movement Cardiovascular: Regular rate/rhythm, Normal S1 S2, Edema (2+) Gastrointestinal: Normal bowel sounds, No tenderness Musculoskeletal: No tenderness Integumentary: No rashes Neurological: Normal gait, Normal speech, Normal strength at 5/5 x4 extr, Normal tone, Normal affect Lymphatics: No axilla or inguinal lymphadenopathy - Studies Laboratory Data (last 24 hrs) 12/19/18 16:55: PT 13.0 H, INR 1.10 12/19/18 16:55: WBC 5.3, Hgb 13.1 L, Hct 41.5, Plt Count 176 12/19/18 16:55: Sodium 141, Potassium 5.3 H, BUN 22 H, Creatinine 1.58 H, Glucose 359 H, Magnesium 2.2, Total Bilirubin 0.3, AST 21, ALT 30, Alkaline Phosphatase 123 H Assessment and Plan - Problems (Diagnosis) (1) Congestive heart failure Onset Date: 11/12/15 Current Visit: No Status: Acute Plan: Needs an echo and will consult Dr. Hicks. Continue the patient on lasix with I's and O's. Qualifiers: Heart failure type: right heart failure due to left heart failure Qualified Code(s): I50.814 - Right heart failure due to left heart failure (2) Atrial fibrillation Current Visit: Yes Status: Acute Plan: seems to be a new finding. Will consult Dr. Hicks and discuss with his pcp Umesh Menezes Qualifiers: Atrial fibrillation type: unspecified Qualified Code(s): I48.91 - Unspecified atrial fibrillation (3) Diabetes mellitus Onset Date: 04/11/16 Current Visit: No Status: Acute Plan: Continue metformin. Will check a sliding scale. He had a good a1c in the office recently. Will hold the a1c as it is done regularly in the office. 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 Qualifiers: Hypertension type: essential hypertension Qualified Code(s): I10 - Essential (primary) hypertension (5) Hyperlipidemia Current Visit: No Status: Acute Plan: currently stable. Has been checked recently as an out patient Qualifiers: Hyperlipidemia type: pure hypercholesterolemia Qualified Code(s): E78.00 - Pure hypercholesterolemia, unspecified; E78.0 - Pure hypercholesterolemia Discharge Plan: Home Plan to discharge in: 48 Hours - Advance Directives Does patient have a Living Will: Yes Does patient have a Durable POA for Healthcare: Yes - Code Status/Comfort Care Code Status Assessed: Yes Code Status: Full Code Physician Review: Patient Assessed, Agree with Above Assessment and Plan Critical Care: No Time Spent Managing Pts Care (In Minutes): 50
[2018-12-20] MEDS ORDERED: ENOXAPARIN 30 MG/0.3 ML SQ SCH (17:00)
--- NOTE | 2018-12-20 17:37 | P.PN ---
Date of Service: 12/20/18 Discussed the patients afib with Dr. Hicks. Will start him on sotolol and xarelto. Have discussed with the patient.
[2018-12-20] MEDS ORDERED: RIVAROXABAN 10 MG TABLET PO SCH (17:45)
[2018-12-20] MEDS: SOTALOL HCL 80 MG TAB PO SCH (17:54)
[2018-12-20] MEDS: METFORMIN HCL 500 MG TAB PO SCH (17:56)
[2018-12-20] MEDS: ATORVASTATIN 40 MG TAB PO SCH (21:41)
[2018-12-20] MEDS: SPIRONOLACTONE 25 MG TABLET PO SCH (21:41)
[2018-12-21] MEDS: SOTALOL HCL 80 MG TAB PO SCH ×2 (05:51→17:20)
--- NOTE | 2018-12-21 06:47 | CON ---
Date of Consultation: 12/20/2018 Reason For Consultation: Congestive heart failure. History Of Present Illness: Mr. Reyna is a 72-year-old white male. He is very well known to me f rom previous office visits and admission. He is known to have an ejection fraction about 35% as of 2 016. Had a normal stress test in 2016. Has been doing well with his chronic systolic congestive hea rt failure. However, he came in with exacerbation, was found to have atrial fibrillation, which is n ew to him. He denied any chest pain and denied any syncope. Past Medical History: Includes chronic systolic congestive heart failure, diabetes, hypertension, dy slipidemia, degenerative joint disease, and coronary artery disease. Catheterization in 2016 showed 100% occlusion of his ostial RCA with collaterals from the LAD and the circumflex. Allergies: INCLUDE LEVAQUIN. Review of Systems: Negative. Social History: Negative. Family History: Noncontributory. Medications: At home include Aldactone, losartan, , glimepiride, Lipitor, metformin, and aspirin. Physical Examination: Vital Signs: Stable. He was in atrial fibrillation at a rate of about 120. HEENT: Negative. Neck: Supple without any bruit, lymphadenopathy, JVD, or thyromegaly. Chest: Revealed bilateral rales. Cardiac: Revealed atrial fibrillation. No murmurs, gallops, or rubs. Abdomen: Obese, but benign. Extremities: Revealed 2+ edema. Neurological: He was nonfocal. Skin: Dry and intact. Extremities: Pulses were present bilaterally distally. Diagnostic Data: His glucose was 348, creatinine is 1.31. Troponin is 0.06. BNP is 1774. Chest x- ray shows possible pneumonia. EKG showed atrial fibrillation. Impression And Plan: 1.Atrial fibrillation, new onset. I think we need to put him on sotalol and anticoagulate him and g et an echocardiogram on him. His TSH is normal. If he does not convert with sotalol, we will plan a cardioversion later as an outpatient. 2.Acute on chronic systolic congestive heart failure. I agree with his present regimen including La six, Aldactone, and losartan. 3.Diabetes. 4.Hypertension, well controlled. 5.Renal insufficiency, stage 2. 6.Elevated troponin and BNP secondary to congestive heart failure. 7.Possible pneumonia. 8.History of coronary artery disease with known occlusion of his RCA in 2016 with collaterals from t he LAD and the circumflex. I do not think we are dealing with any acute coronary syndrome at this po int. We will continue his present management otherwise. I will continue to follow him with Dr. Sheth. JOS/GUERA Voice ID: [id number] Report ID: [id number]
[2018-12-21] MEDS ORDERED: GLIMEPIRIDE 2 MG TABLET PO SCH (08:00)
[2018-12-21] MEDS: INSULIN -REGULAR HUMAN 50 UNIT/0.5 ML ML SQ SCH ×4 (08:41→20:49)
[2018-12-21] MEDS: METFORMIN HCL 500 MG TAB PO SCH ×2 (08:42→17:18)
[2018-12-21] MEDS: GLIMEPIRIDE 4 MG TABLET PO SCH (08:42)
[2018-12-21] MEDS: ASPIRIN 325 MG TAB PO SCH (08:43)
[2018-12-21] MEDS ORDERED: HOME MED 1 EA UNK (Glimepiride [Glimepiride] 1 TAB) PO SCH (09:00)
[2018-12-21] MEDS: SPIRONOLACTONE 25 MG TABLET PO SCH (09:00)
--- NOTE | 2018-12-21 10:10 | P.PN ---
Subjective Date of Service: 12/21/18 Primary Care Provider: Umesh Menezes Chief Complaint: CHF exacerbation Subjective: Improving Review of Systems 10-point ROS is otherwise unremarkable Physical Examination - Vital Signs Temperature: 97.1 F Blood Pressure: 105/63 Pulse: 90 Respirations: 20 Pulse Ox (%): 97 - Physical Exam General: Alert, In no apparent distress HEENT: Atraumatic, PERRLA, EOMI Neck: Supple, JVD not distended Respiratory: Clear to auscultation bilaterally, Normal air movement Cardiovascular: Regular rate/rhythm, Normal S1 S2, Edema (1+ in the right leg. Better on the left) Gastrointestinal: Normal bowel sounds, No tenderness Musculoskeletal: No tenderness Integumentary: No rashes Neurological: Normal speech, Normal tone, Normal affect Lymphatics: No axilla or inguinal lymphadenopathy Assessment & Plan - Problems (Diagnosis) (1) Atrial fibrillation Current Visit: Yes Status: Acute Plan: Rate controlled with sotalol. Will discharge on sotalol and xarelto. Follow up with Dr. Hicks and Victoria Menezes Qualifiers: Atrial fibrillation type: unspecified Qualified Code(s): I48.91 - Unspecified atrial fibrillation (2) Congestive heart failure Onset Date: 11/12/15 Current Visit: No Status: Acute Plan: Needs an echo and will consult Dr. Hicks. Continue the patient on lasix with I's and O's. Qualifiers: Heart failure type: right heart failure due to left heart failure Qualified Code(s): I50.814 - Right heart failure due to left heart failure (3) Diabetes mellitus Onset Date: 04/11/16 Current Visit: No Status: Acute Plan: Continue metformin. Will check a sliding scale. He had a good a1c in the office recently. Will hold the a1c as it is done regularly in the office. 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 Qualifiers: Hypertension type: essential hypertension Qualified Code(s): I10 - Essential (primary) hypertension (5) Hyperlipidemia Current Visit: No Status: Acute Plan: currently stable. Has been checked recently as an out patient Qualifiers: Hyperlipidemia type: pure hypercholesterolemia Qualified Code(s): E78.00 - Pure hypercholesterolemia, unspecified; E78.0 - Pure hypercholesterolemia Discharge Plan: Home Plan to discharge in: 24 Hours - Code Status/Comfort Care Code Status Assessed: No Code Status: Full Code Physician Review: Patient Assessed, Agree with Above Assessment and Plan Critical Care: No Time Spent Managing Pts Care (In Minutes): 20
--- NOTE | 2018-12-21 11:32 | PN ---
Date of Progress Note: 12/20/2018 Mr. Reyna was seen on 12/20/2018. He came in with acute exacerbation of chronic systolic congesti ve heart failure. He has lost 12 pounds since he has been admitted. He was in atrial fibrillation y esterday. Sotalol was started at 80 mg 1 p.o. b.i.d. He got 1 dose last night and he is already kyle k in normal rhythm. He is still dyspnea on exertion, but has no rales, no edema. I encouraged him t o do some physical activities today including sitting up in a chair and walking around. An echocardi ogram is pending. We will see what that shows prior to making further decisions. JOS/GUERA Voice ID: [id number] Report ID: [id number]
[2018-12-21] MEDS: FUROSEMIDE 20 MG/ 2ML VIAL IV SCH ×2 (11:52→18:51)
[2018-12-21] MEDS: LOSARTAN POTASSIUM 50 MG TABLET PO SCH (12:51)
[2018-12-21] MEDS ORDERED: RIVAROXABAN 20 MG TABLET PO SCH (17:00)
[2018-12-21] MEDS: ATORVASTATIN 40 MG TAB PO SCH (20:51)
[2018-12-22] MEDS: SOTALOL HCL 80 MG TAB PO SCH (06:22)
--- NOTE | 2018-12-22 07:36 | ECHO ---
HEIGHT: 5 ft 8 in WEIGHT: 220 lb 9.6 oz DATE OF STUDY: 12/21/[address]: Jhoan Hicks MD 2-DIMENSIONAL: YES M.MODE: YES DOPPLER: YES COLOR FLOW: YES TDS: PORTABLE: DEFINITY: BUBBLE STUDY: DIAGNOSIS: CONGESTIVE HEART FAILURE CARDIAC HISTORY: CATHERIZATION: NO SURGERY: NO PROSTHETIC VALVE: NO PACEMAKER: NO MEASUREMENTS (cm) DIASTOLIC (NORMALS) SYSTOLIC (NORMALS) IVSd 1.2 (0.6-1.2) LA Diam 3.9 (1.9-4.0) LVEF 31% LVIDd 4.6 (3.5-5.7) LVIDs 3.9 (2.0-3.5) %FS 15% LVPWd 1.3 (0.6-1.2) Ao Diam 3.1 (2.0-3.7) 2 DIMENSIONAL ASSESSMENT: RIGHT ATRIUM: NORMAL LEFT ATRIUM: NORMAL RIGHT VENTRICLE: NORMAL LEFT VENTRICLE: LEFT VENTRICULAR HYPERTROPHY TRICUSPID VALVE: NORMAL MITRAL VALVE: MITRAL ANNULAR CALCIFICATION PULMONIC VALVE: NORMAL AORTIC VALVE: SCLEROSIS PERICARDIAL EFFUSION: NONE AORTIC ROOT: NORMAL LEFT VENTRICULAR WALL MOTION: SEVERE GLOBAL HYPOKINESIS DOPPLER/COLOR FLOW: MILD MITRAL AND TRICUSPID REGURGITATION COMMENTS: SEVERE GLOBAL HYPOKINESIS EJECTION FRACTION 31%. LEFT VENTRICULAR HYPERTROPHY. MITRAL ANNULAR CALCIFICATION. AORTIC SCLEROSIS. MILD MITRAL AND TRICUSPID REGURGITATION. TECHNOLOGIST: BREANNA GARCIA
[2018-12-22] MEDS: GLIMEPIRIDE 4 MG TABLET PO SCH (08:00)
[2018-12-22] MEDS: METFORMIN HCL 500 MG TAB PO SCH (08:31)
[2018-12-22] MEDS: LOSARTAN POTASSIUM 50 MG TABLET PO SCH (08:31)
[2018-12-22] MEDS: ASPIRIN 325 MG TAB PO SCH (08:31)
[2018-12-22] MEDS: FUROSEMIDE 20 MG/ 2ML VIAL IV SCH (08:32)
[2018-12-22] MEDS: INSULIN -REGULAR HUMAN 50 UNIT/0.5 ML ML SQ SCH (08:46)
--- NOTE | 2018-12-22 10:14 | P.DS ---
Admission Date: 12/19/18 Discharge Date: 12/22/18 Primary Care Provider: Umesh Menezes Disposition: ROUTINE DISCHARGE Discharge Condition: GOOD Reason for Admission: CHF exacerbation - Problems (1) Atrial fibrillation Current Visit: Yes Status: Acute Qualifiers: Atrial fibrillation type: unspecified Qualified Code(s): I48.91 - Unspecified atrial fibrillation (2) Congestive heart failure Onset Date: 11/12/15 Current Visit: No Status: Acute Qualifiers: Heart failure type: right heart failure due to left heart failure Qualified Code(s): I50.814 - Right heart failure due to left heart failure (3) Diabetes mellitus Onset Date: 04/11/16 Current Visit: No Status: Acute Qualifiers: Diabetes mellitus type: type 2 Diabetes mellitus shelter insulin use: without shelter use Diabetes mellitus complication status: without complication Qualified Code(s): E11.9 - Type 2 diabetes mellitus without complications (4) HTN (hypertension) Current Visit: Yes Status: Acute Qualifiers: Hypertension type: essential hypertension Qualified Code(s): I10 - Essential (primary) hypertension (5) Hyperlipidemia Current Visit: No Status: Acute Qualifiers: Hyperlipidemia type: pure hypercholesterolemia Qualified Code(s): E78.00 - Pure hypercholesterolemia, unspecified; E78.0 - Pure hypercholesterolemia Brief History of Present Illness: Patient is an office patient of Umesh Menezes He has been having increasing swelling in his legs. Increased exertional dyspnea. The patient has been sleeping in a chair as he gets short of breath lying flat. He denies missing any of his medcations. No increased fluid intake. He drinks 6 beers in a week. Which should not be a large fluid intake. He does smoke 1/2 ppd. He was found to be in atrial fib in the ER. This is not on his chart in the office. He normally see's Dr. Hicks. Hospital Course: Patient was admitted with CHF exacerbation. Was found to be in Afib. Seen by Dr. Hicks. He was converted with sotalol. Started on xarelto as well. Did well with diuresis. Unfortunately the sotalol dropped his blood pressure. The patient spirnolactone was stopped. Will have him follow up with his PCP Radha Menezes. May need to further adjust his bp meds. Will have him follow up with Dr. Hicks. Vital Signs/Physical Exam: Temp Pulse Resp BP Pulse Ox 97.0 F 82 16 100/60 97 12/22/18 08:00 12/22/18 08:32 12/22/18 08:00 12/22/18 08:32 12/22/18 08:00 General: Alert, In no apparent distress HEENT: Atraumatic, PERRLA, EOMI Neck: Supple, JVD not distended Respiratory: Clear to auscultation bilaterally, Normal air movement Cardiovascular: Regular rate/rhythm, Normal S1 S2 Gastrointestinal: Normal bowel sounds, No tenderness Musculoskeletal: No tenderness Integumentary: No rashes Neurological: Normal speech, Normal tone, Normal affect Lymphatics: No axilla or inguinal lymphadenopathy Laboratory Data at Discharge: WBC 5.4 K/uL (4.3-10.9) 12/20/18 05:35 Hgb 12.6 g/dL (13.6-17.9) L 12/20/18 05:35 Hct 39.1 % (39.6-49.0) L 12/20/18 05:35 Plt Count 181 K/uL (152-406) 12/20/18 05:35 PT 13.0 SECONDS (9.5-12.5) H 12/19/18 16:55 INR 1.10 12/19/18 16:55 Sodium 143 mmol/L (136-145) 12/20/18 05:35 Potassium 4.6 mmol/L (3.5-5.1) 12/20/18 05:35 BUN 21 mg/dL (7-18) H 12/20/18 05:35 Creatinine 1.31 mg/dL (0.55-1.3) H 12/20/18 05:35 Glucose 389 mg/dL (74-106) H 12/21/18 11:36 Magnesium 2.2 mg/dL (1.8-2.4) 12/19/18 16:55 Total Bilirubin 0.3 mg/dL (0.2-1.0) 12/19/18 16:55 AST 21 U/L (15-37) 12/19/18 16:55 ALT 30 U/L (12-78) 12/19/18 16:55 Alkaline Phosphatase 123 U/L (45-117) H 12/19/18 16:55 Troponin I 0.06 ng/mL (0.0-0.045) H 12/20/18 00:30 Home Medications: RX: Aspirin 1 tab PO DAILY 12/19/18 RX: Atorvastatin Calcium 1 tab PO BEDTIME 12/19/18 RX: Glimepiride 1 tab PO DAILY 12/19/18 RX: Losartan Potassium 1 tab PO DAILY 12/19/18 RX: Meloxicam 15 mg PO DAILY 12/19/18 RX: Metformin HCl 1 tab PO BID 12/19/18 RX: Sotalol HCl [Betapace*] 80 mg PO BID 6AM 6PM 30 Days #60 tab 12/22/18 Rivaroxaban [Xarelto] 20 mg PO DAILY #90 tablet 12/22/18 New Medications: Rivaroxaban [Xarelto] 20 mg PO DAILY #90 tablet RX: Sotalol HCl [Betapace*] 80 mg PO BID 6AM 6PM 30 Days #60 tab Diet: ADA Activity: Ad gaby Followup: Victoria Menezes NP [Primary Care Provider] - 1 Week Jhoan Hicks MD [ACTIVE - CAN ADMIT] - 1-2 Weeks Time spent managing pt's care (in minutes): 35
[2018-12-22 11:29] VITALS: O2SAT 97
[2018-12-22 12:39] VITALS: BP 127/58; TEMP 97.3
== END 2018-12-22 12:37 | disposition home or self-care (01) | DRG 291 ==
LOC: ER 16:36 → ERHOLD 20:24 → 2ND 20:36
PROVIDERS: ADMIT Internal Medicine; ATTEND Internal Medicine
DX: I13.0 Hypertensive heart and chronic kidney disease with heart failure and stage 1 through stage 4 chronic kidney disease, or unspecified chronic kidney disease (principal); I50.23 Acute on chronic systolic (congestive) heart failure; J18.9 Pneumonia, unspecified organism; I48.91 Unspecified atrial fibrillation; E78.00 Pure hypercholesterolemia, unspecified; N18.2 Chronic kidney disease, stage 2 (mild); E11.22 Type 2 diabetes mellitus with diabetic chronic kidney disease; Z79.84 Long term (current) use of oral hypoglycemic drugs; I25.10 Atherosclerotic heart disease of native coronary artery without angina pectoris; F17.210 Nicotine dependence, cigarettes, uncomplicated
CPT/HCPCS: 36415; 71045; 80048; 80076; 81003; 82947; 82962; 83735; 83880; 84484; 85025; 85610; 93005; 93306; J1650; J1940

== ENCOUNTER 2019-05-21 19:33 | Inpatient (IN) | payer OTHER ==
--- OUTSIDE RECORDS SUMMARY | 2019-05-21 19:36 | XMS REPORT | Clinical Summary ---
:1945 Author Organization [facility] Address [address] [place] [address] Care Team Providers Name Role Phone Jeffrey [...] as needed for Muscle tabletIndications: spasms . muscle spasm metFORMIN Take 1,000 mg by 0 Active [...] Not on file Implants Implanted Type Area Museum Security Chief Device Shelf Model / Identifier Expiration Serial / Lot Date Stent Epic [id number] - [id number] Stents-Per Right: [place] [id number] / Implanted: Qty: 1 on 06/10/2016 by Aman Colunga MD ipheral Leg SCI: PERIPHERAL / INTERV [id number] Grft José Mrtrstm 200mg [id number] - [id number] Tissue Right: [employer] 2017 [id number] / Implanted: Qty: 1 on 06/12/2016 by Antoine Mac, DPM Graft/Subs Foot / titute [id number] Tissue Nucell Lg W/Matrix Nc-1002 - [id number] Tissue Right: [employer] NC-1002 / Implanted: Qty: 1 on 06/12/2016 by Antoine Mac, DPM Graft/Subs Foot / titute [id number] Grft José Mrtrstm 500 Mg [id number] - [id number] Tissue Right: [employer] [id number] / Implanted: Qty: 1 on 08/28/2016 by Antoine Mac, DPM Graft/Subs Toe [id number] / titute [id number] Tissue Nucell Med W/Matrix Nc-1001 - [id number] Tissue Right: [employer] 03/05/2017 NC-1001 / Implanted: Qty: 1 on 08/28/2016 by Antoine Mac DPM Graft/Subs Toe [id number] / titute Results Not on fileafter 05/20/2018 Insurance Payer Benefit Plan / Group Subscriber ID Type Phone Address CARE IMPROVEMENT MEDICARE MGD CARE IMPROVEMENT PLUS xxxxxxxxx CARE Advance Directives For more information, please contact:[address] [phone] Code Status Date Activated Date Inactivated Comments Full Code 06/10/2016 4:34 PM 06/13/2016 7:26 PM This code status was determined by: Patient Full Code 06/09/2016 8:54 PM 06/10/2016 4:34 PM This code status was determined by: Patient
[2019-05-21] MEDS ORDERED: ACETAMINOPHEN 500 MG TAB ONE (20:10)
[2019-05-21 20:30] LABS: Absolute Lymphocytes (CBC) 1.1 K/uL (0.7-4.9); Basophils % 0.9 % (0-1.3); Eosinophils % 0.8 % (0-4.4); Hematocrit 47.7 % (39.6-49.0); Lymphocytes % 9.6 % (15.3-44.8); MPV 9.7 fL (7.6-11.3); Monocytes % 8.1 % (3.3-12.3); RBC Red Blood Cell Count 5.19 M/uL (4.33-5.43)
[2019-05-21 20:31] LABS: Protime INR 2.09
[2019-05-21 20:49] LABS: Arterial Blood Carboxyhemoglob 2.6 % (0-1.5); Blood Gas Oxyhemoglobin 87.5 % (94-97); Blood O2 Saturation 90.6 % (92-98.5)
[2019-05-21] MEDS ORDERED: NA CHLORIDE 0.9% 1,000 ML ONE (20:53)
[2019-05-21 21:24] LABS: Urine Blood 1+ (NEG); Urine Glucose 2+ (NEG); Urine Protein 2+ (NEG); Urine Specific Gravity 1.015 (1.005-1.030)
[2019-05-21 21:44] LABS: Albumin 3.5 g/dL (3.4-5.0); Bilirubin Direct 0.3 mg/dL (0-0.2); Bilirubin Total 0.8 mg/dL (0.2-1.0); Magnesium 1.7 mg/dL (1.8-2.4); Potassium 4.9 mmol/L (3.5-5.1); Protein, Total 7.9 g/dL (6.4-8.2); Troponin (Emerg Dept Use Only) 0.04 ng/mL (0.0-0.045)
--- NOTE | 2019-05-22 01:01 | EDPHYS ---
Physician Documentation [facility] Name: Chad Reyna Jr Age: 73 yrs Sex: Male : 1945 Arrival Date: 05/21/2019 Time: 19:35 Bed 7 Private MD: Victoria Menezes ED Physician Dano Pascual HPI: 05/21 22:41 This 73 yrs old Male presents to ER via EMS with complaints of Shoulder Pain. pkl 22:42 Details of fall: The patient fell from an upright position, mowing the yard. Onset: The pkl symptoms/episode began/occurred 2 day(s) ago, and became worse today. Associated injuries: The patient sustained right upper extremity, right wrist, left knee and abdomen. Patient started having fever, cough and abdominal pain today. Historical: - Allergies: 19:48 Levofloxacin; ca1 - Home Meds: 20:00 atorvastatin 40 mg Oral tab At bedtime. [Active]; metformin 1,000 mg Oral tab 1 tab 2 ca1 times per day [Active]; glimepiride 4 mg Oral tab 1 tab BID [Active]; gabapentin 300 mg oral cap 1 cap twice a day [Active]; furosemide 40 mg Oral tab 1 tab once daily [Active]; carvedilol 3.125 mg oral tab 1 tab 2 times per day [Active]; Xarelto 20 mg oral tab 1 tab once daily [Active]; Entresto 49-51 mg oral tab 1 tab 2 times per day [Active]; - PMHx: 20:00 Arthritis; CHF; CVA; Diabetes - NIDDM; Hyperlipidemia; PERIPHERAL NEUROPATHY; ca1 Pneumonia; Rheumatoid Arthritis; - PSHx: 20:00 leg stents; foot surg; arm surg; ca1 - Immunization history:: Adult Immunizations not up to date. - Social history:: Smoking status: Patient uses tobacco products, smokes one-half pack cigarettes per day. - Ebola Screening: : Patient negative for fever greater than or equal to 101.5 degrees Fahrenheit, and additional compatible Ebola Virus Disease symptoms Patient denies exposure to infectious person Patient denies travel to an Ebola-affected area in the 21 days before illness onset. ROS: 22:42 Eyes: Negative for injury, pain, redness, and discharge, ENT: Negative for injury, pkl pain, and discharge, Neck: Negative for injury, pain, and swelling, Cardiovascular: Negative for chest pain, palpitations, and edema. 22:42 Respiratory: Positive for cough, with no reported sputum. 22:42 Abdomen/GI: Positive for abdominal pain, of the right upper quadrant, left upper quadrant, right lower quadrant and left lower quadrant. 22:42 Back: Negative for pain at rest. 22:42 : Negative for urinary symptoms. 22:42 MS/extremity: Positive for injury or acute deformity, pain, tenderness, of the Right shoulder, elbow and wrist, Abrasions, pain left knee. 22:42 Neuro: Negative for altered mental status, loss of consciousness. Exam: 22:42 Head/Face: Normocephalic, atraumatic. Eyes: Pupils equal round and reactive to light, pkl extra-ocular motions intact. Lids and lashes normal. Conjunctiva and sclera are non-icteric and not injected. Cornea within normal limits. Periorbital areas with no swelling, redness, or edema. ENT: Nares patent. No nasal discharge, no septal abnormalities noted. Tympanic membranes are normal and external auditory canals are clear. Oropharynx with no redness, swelling, or masses, exudates, or evidence of obstruction, uvula midline. Mucous membranes moist. Neck: Trachea midline, no thyromegaly or masses palpated, and no cervical lymphadenopathy. Supple, full range of motion without nuchal rigidity, or vertebral point tenderness. No Meningismus. Chest/axilla: Normal chest wall appearance and motion. Nontender with no deformity. No lesions are appreciated. Cardiovascular: Regular rate and rhythm with a normal S1 and S2. No gallops, murmurs, or rubs. Normal PMI, no JVD. No pulse deficits. Respiratory: Lungs have equal breath sounds bilaterally, clear to auscultation and percussion. No rales, rhonchi or wheezes noted. No increased work of breathing, no retractions or nasal flaring. 22:42 Abdomen/GI: Bowel sounds: normal, Palpation: moderate abdominal tenderness, in all quadrants. 22:42 Back: Exam negative for acute changes. 22:42 : Exam negative for acute changes. 22:42 Musculoskeletal/extremity: Extremities: grossly normal except: noted in the right shoulder: pain, noted in the right elbow: pain, noted in the right wrist: pain, swelling, tenderness. 22:42 Skin: abscess, induration, abrasions and pain left knee. 22:42 Neuro: Orientation: is normal, Mentation: is normal, Cranial nerves: grossly normal, Motor: moves all fours. Vital Signs: 19:37 BP 154 / 88; Pulse 125; Resp 16; Temp 101.1; Pulse Ox 92% on R/A; Weight 108.86 kg (R); ca1 Height 5 ft. 8 in. (172.72 cm); Pain 7/10; 20:00 BP 142 / 87; Pulse 124; Resp 17 S; Pulse Ox 92% on R/A; ca1 22:04 BP 89 / 50; Pulse 108; Resp 15 S; Temp 98.9(O); Pulse Ox 96% on 3 lpm NC; ca1 22:22 BP 102 / 62; Pulse 105; Resp 16 S; Pulse Ox 96% on 3 lpm NC; ca1 23:02 BP 116 / 71 LA (auto/reg); Pulse 99; Pulse Ox 96% on 3 lpm NC; jp3 23:22 BP 116 / 74; Pulse 98; Resp 16 S; Temp 98.7(O); Pulse Ox 97% on 3 lpm NC; ca1 23:56 BP 111 / 80; Pulse 96; Resp 15 S; Pulse Ox 97% on 3 lpm NC; ca1 05/22 00:37 BP 134 / 87; Pulse 98; Resp 15 S; Temp 98.3(O); Pulse Ox 97% on 3 lpm NC; ca1 00:48 Pulse 97; Resp 15; Pulse Ox 92% on R/A; ca1 05/21 19:37 Body Mass Index 36.49 (108.86 kg, 172.72 cm) ca1 MDM: 05/21 19:37 Patient medically screened. pkl 05/22 00:55 Data reviewed: vital signs, nurses notes, lab test result(s), EKG, radiologic studies, pkl CT scan, plain films. ED course: Talked to Dr. Keller. Recommend admission. 05/21 20:02 Order name: Basic Metabolic Panel pkl 05/21 20:02 Order name: CBC with Diff pkl 05/21 20:02 Order name: LFT's pkl 05/21 20:02 Order name: Magnesium pkl 05/21 20:02 Order name: NT PRO-BNP pkl 05/21 20:02 Order name: PT-INR; Complete Time: 21:59 pkl 05/21 20:02 Order name: Troponin (emerg Dept Use Only); Complete Time: 21:59 pkl 05/21 20:02 Order name: Blood Culture Adult (2) pkl 05/21 20:03 Order name: ABG; Complete Time: 21:59 pkl 05/21 20:03 Order name: Basic Metabolic Panel; Complete Time: 21:59 EDMS 05/21 20:03 Order name: CBC with Automated Diff; Complete Time: 21:59 EDMS 05/21 20:03 Order name: Liver (Hepatic) Function; Complete Time: 21:59 EDMS 05/21 20:03 Order name: Magnesium; Complete Time: 21:59 EDMS 05/21 20:03 Order name: NT PRO-BNP; Complete Time: 21:59 EDMS 05/21 20:02 Order name: XRAY Chest (1 view) pkl 05/21 20:04 Order name: Lactate; Complete Time: 21:59 pkl 05/21 20:04 Order name: Procalcitonin; Complete Time: 21:59 pkl 05/21 20:08 Order name: Knee Left 2 View XRAY pkl 05/21 20:08 Order name: Humerus Right XRAY pkl 05/21 20:09 Order name: Lipase; Complete Time: 21:59 pkl 05/21 20:15 Order name: Creatinine, Serum pkl 05/21 20:17 Order name: Creatinine (Radiology Only); Complete Time: 21:59 EDMS 05/21 20:50 Order name: Urine Dipstick--Ancillary (enter results); Complete Time: 21:59 ag4 05/21 22:55 Order name: CRP; Complete Time: 00:34 pkl 05/21 22:55 Order name: Sed Rate; Complete Time: 00:34 pkl 05/22 00:59 Order name: Flu; Complete Time: 01:48 ca1 05/22 00:59 Order name: Strep; Complete Time: 01:48 ca1 05/22 01:44 Order name: Throat Culture EDMS 05/22 01:48 Order name: Lactate EDMS 05/22 01:48 Order name: NT PRO-BNP EDMS 05/21 20:02 Order name: EKG; Complete Time: 20:04 pkl 05/21 20:02 Order name: Cardiac monitoring; Complete Time: 20:59 pkl 05/21 20:02 Order name: EKG - Nurse/Tech; Complete Time: 20:59 pkl 05/21 20:02 Order name: IV Saline Lock; Complete Time: 20:59 pkl 05/21 20:02 Order name: Labs collected and sent; Complete Time: 20:59 pkl 05/21 20:02 Order name: O2 Per Protocol; Complete Time: 20:59 pkl 05/21 20:02 Order name: O2 Sat Monitoring; Complete Time: 20:59 pk 05/21 20:08 Order name: Wrist Right 3 View XRAY pk 05/21 22:02 Order name: CT Traumagram (Head C Spine CAP W Con) pk 05/21 22:13 Order name: Upper Ext Wo Con W/ Mpr EDMS 05/22 01:48 Order name: Heart Healthy EDMS Administered Medications: 05/21 20:27 Drug: NS 0.9% 1000 ml Route: IV; Rate: 100 ml/hr; Site: left antecubital; ca1 05/22 01:19 Follow up: IV Status: Infusion continued upon admission ca1 01:07 Drug: Tetanus-Diphtheria Toxoid Adult 0.5 ml {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 Exp: ca1 01/27/2021. Lot #: [id number]. } Route: IM; Site: right deltoid; 01:19 Follow up: Response: No adverse reaction ca1 Disposition: 05/22/19 01:00 Hospitalization ordered by Cristi Keller for Inpatient Admission. Preliminary diagnosis is Acute febrile illness. Hypoxia. Possible pneumonia. Contusion right upper extremity and left knee. Abdominal pain. S/P Fall. - Bed requested for Telemetry/MedSurg (observation). - Status is Inpatient Admission. tl1 - Condition is Stable. - Problem is new. - Symptoms are unchanged. UTI on Admission? No Signatures: Dispatcher [employer] EDRI Xiomara Cruz RN RN mw Autenrieth, Alissa, RN RN aa1 Dano Pascual MD MD pkYudy Rogers RN RN tl1 Helene Nicholas RN RN ca1 Corrections: (The following items were deleted from the chart) 01:34 01:00 Hospitalization Ordered by Cristi Keller MD for Observation. Preliminary aa1 diagnosis is Acute febrile illness. Hypoxia. Possible pneumonia. Contusion right upper extremity and left knee. Abdominal pain. S/P Fall. Bed requested for Telemetry/MedSurg (observation). Status is Observation. Condition is Stable. Problem is new. Symptoms are unchanged. UTI on Admission? No. pkl 01:37 01:34 05/22/2019 01:00 Hospitalization Ordered by Cristi Keller MD for Inpatient pkl Admission. Preliminary diagnosis is Acute febrile illness. Hypoxia. Possible pneumonia. Contusion right upper extremity and left knee. Abdominal pain. S/P Fall. Bed requested for Telemetry/MedSurg (observation). Status is Inpatient Admission. Condition is Stable. Problem is new. Symptoms are unchanged. UTI on Admission? No. aa1 01:44 01:37 05/22/2019 01:00 Hospitalization Ordered by Cristi Keller MD for Inpatient mw Admission. Preliminary diagnosis is Acute febrile illness. Hypoxia. Possible pneumonia. Contusion right upper extremity and left knee. Abdominal pain. S/P Fall. Bed requested for Telemetry/MedSurg (observation). Status is Inpatient Admission. Condition is Stable. Problem is new. Symptoms are unchanged. UTI on Admission? No. pkl 01:47 00:55 ED course: Talked to Dr. Keller. Recommend observation.. [facility] pkl 02:12 01:44 05/22/2019 01:00 Hospitalization Ordered by Cristi Keller MD for Inpatient tl1 Admission. Preliminary diagnosis is Acute febrile illness. Hypoxia. Possible pneumonia. Contusion right upper extremity and left knee. Abdominal pain. S/P Fall. Bed requested for Telemetry/MedSurg (observation). Status is Inpatient Admission. Condition is Stable. Problem is new. Symptoms are unchanged. UTI on Admission? No. mw
--- NOTE | 2019-05-22 01:01 | ER ---
Nurse's Notes [facility] Name: Chad Reyna Jr Age: 73 yrs Sex: Male : 1945 Arrival Date: 05/21/2019 Time: 19:35 Bed 7 Private MD: Victoria Menezes Diagnosis: Acute febrile illness. Hypoxia. Possible pneumonia. Contusion right upper extremity and left knee. Abdominal pain. S/P Fall Presentation: 05/21 19:37 Presenting complaint: EMS states: at 1100 on pt fell. Hit his R side of the ca1 body, Negative LOC. Did not go to the hospital. Today pt complains of pain on R arm and swelling of R wrist. SPO2 on scene was 88% RA, O2 given via NC at 2LPM, SPO2 increased to 96%. Transition of care: patient was not received from another setting of care. Onset of symptoms was May 21, 2019. Risk Assessment: Do you want to hurt yourself or someone else? Patient reports no desire to harm self or others. Initial Sepsis Screen: Does the patient meet any 2 criteria? Temp <36.0*C (96.8*F)) or > 38.3*C (100.9*F). HR > 90 bpm. Does the patient have a suspected source of infection? Yes: Acute abdominal pain If YES to both, name of provider notified: Dano Pascual MD. Care prior to arrival: Medication(s) given: Fentanyl 50 meqs IV IV initiated. 18 GA, in the left antecubital area, Glucose check: 315 Oxygen administered. via nasal cannula. 19:37 Method Of Arrival: EMS: [facility] ca1 19:37 Acuity: SANDOVAL 3 ca1 Triage Assessment: 19:37 General: Appears in no apparent distress. uncomfortable, Behavior is calm, cooperative, ca1 appropriate for age. Pain: Complains of pain in right arm. Historical: - Allergies: 19:48 Levofloxacin; ca1 - Home Meds: 20:00 atorvastatin 40 mg Oral tab At bedtime. [Active]; metformin 1,000 mg Oral tab 1 tab 2 ca1 times per day [Active]; glimepiride 4 mg Oral tab 1 tab BID [Active]; gabapentin 300 mg oral cap 1 cap twice a day [Active]; furosemide 40 mg Oral tab 1 tab once daily [Active]; carvedilol 3.125 mg oral tab 1 tab 2 times per day [Active]; Xarelto 20 mg oral tab 1 tab once daily [Active]; Entresto 49-51 mg oral tab 1 tab 2 times per day [Active]; - PMHx: 20:00 Arthritis; CHF; CVA; Diabetes - NIDDM; Hyperlipidemia; PERIPHERAL NEUROPATHY; ca1 Pneumonia; Rheumatoid Arthritis; - PSHx: 20:00 leg stents; foot surg; arm surg; ca1 - Immunization history:: Adult Immunizations not up to date. - Social history:: Smoking status: Patient uses tobacco products, smokes one-half pack cigarettes per day. - Ebola Screening: : Patient negative for fever greater than or equal to 101.5 degrees Fahrenheit, and additional compatible Ebola Virus Disease symptoms Patient denies exposure to infectious person Patient denies travel to an Ebola-affected area in the 21 days before illness onset. Screenin:03 Abuse screen: Denies threats or abuse. Denies injuries from another. Nutritional ca1 screening: No deficits noted. Tuberculosis screening: No symptoms or risk factors identified. Fall Risk Fall in past 12 months (25 points). Secondary diagnosis (15 points) CVA, IV access (20 points). Ambulatory Aid- Crutches/Cane/Walker (15 pts). Gait- Impaired (20 pts.). Assessment: 20:03 General: Appears in no apparent distress. uncomfortable, Behavior is calm, cooperative, ca1 appropriate for age. Pain: Complains of pain in left lower quadrant and abdomen diffusely and right arm Pain currently is 7 out of 10 on a pain scale. Pain began 4 hours ago. abdominal pain started few hours ago. Shoulder and arm pain started . Neuro: Level of Consciousness is awake, alert, obeys commands, Oriented to person, place, time, situation. Cardiovascular: Heart tones S1 S2 present Capillary refill < 3 seconds Patient's skin is warm and dry. Rhythm is sinus tachycardia. Respiratory: Airway is patent Respiratory effort is even, unlabored, Respiratory pattern is regular, symmetrical, Breath sounds are clear bilaterally. GI: Abdomen is round distended, Bowel sounds present X 4 quads. Abd is soft X 4 quads Abdomen is tender to palpation in left upper quadrant and left lower quadrant. GI: Reports. : No deficits noted. No signs and/or symptoms were reported regarding the genitourinary system. EENT: No deficits noted. No signs and/or symptoms were reported regarding the EENT system. Derm: Skin is healthy with good turgor, Skin is pink, warm \T\ dry. Musculoskeletal: Circulation, motion, and sensation intact. Capillary refill < 3 seconds, Range of motion: limited in right shoulder, right elbow and right wrist. 21:00 Reassessment: Patient appears in no apparent distress at this time. No changes from ca1 previously documented assessment. Patient and/or family updated on plan of care and expected duration. Pain level reassessed. Patient is alert, oriented x 3, equal unlabored respirations, skin warm/dry/pink. 22:04 Reassessment: Patient appears in no apparent distress at this time. Patient and/or ca1 family updated on plan of care and expected duration. Pain level reassessed. Patient is alert, oriented x 3, equal unlabored respirations, skin warm/dry/pink. 22:08 Reassessment: Notified provided of pt's BP and VS. ca1 23:10 Reassessment: Patient appears in no apparent distress at this time. Patient and/or ca1 family updated on plan of care and expected duration. Pain level reassessed. Patient is alert, oriented x 3, equal unlabored respirations, skin warm/dry/pink. Pt back from CT scan. 23:56 Reassessment: Patient appears in no apparent distress at this time. Eyes closed. Equal ca1 and unlabored breathing. Skin pink, warm and dry. 05/22 00:37 Reassessment: Patient appears in no apparent distress at this time. Patient is alert, ca1 oriented x 3, equal unlabored respirations, skin warm/dry/pink. Pt is watching TV. 00:48 Reassessment: Dr. Pascual at bedside. Ordered to remove O2 and see pt's SPO2. Pt SPO2 ca1 decreased to 91-93% at RA. Dr. Pascual discussed plan of care to pt and to over phone. 's number [phone]. 01:00 Reassessment: Patient appears in no apparent distress at this time. Pt ambulated to [facility] restroom with steady gait. 01:15 Reassessment: Patient appears in no apparent distress at this time. Patient is alert, ca1 oriented x 3, equal unlabored respirations, skin warm/dry/pink. Pt transferred to Room \T\ via wheelchair. Vital Signs: 05/21 19:37 BP 154 / 88; Pulse 125; Resp 16; Temp 101.1; Pulse Ox 92% on R/A; Weight 108.86 kg (R); ca1 Height 5 ft. 8 in. (172.72 cm); Pain 7/10; 20:00 BP 142 / 87; Pulse 124; Resp 17 S; Pulse Ox 92% on R/A; ca1 22:04 BP 89 / 50; Pulse 108; Resp 15 S; Temp 98.9(O); Pulse Ox 96% on 3 lpm NC; ca1 22:22 BP 102 / 62; Pulse 105; Resp 16 S; Pulse Ox 96% on 3 lpm NC; ca1 23:02 BP 116 / 71 LA (auto/reg); Pulse 99; Pulse Ox 96% on 3 lpm NC; jp3 23:22 BP 116 / 74; Pulse 98; Resp 16 S; Temp 98.7(O); Pulse Ox 97% on 3 lpm NC; ca1 23:56 BP 111 / 80; Pulse 96; Resp 15 S; Pulse Ox 97% on 3 lpm NC; ca1 05/22 00:37 BP 134 / 87; Pulse 98; Resp 15 S; Temp 98.3(O); Pulse Ox 97% on 3 lpm NC; ca1 00:48 Pulse 97; Resp 15; Pulse Ox 92% on R/A; ca1 05/21 19:37 Body Mass Index 36.49 (108.86 kg, 172.72 cm) ca1 ED Course: 05/21 19:35 Patient arrived in ED. am2 19:36 Victoria Menezes FNP-C is Private Physician. am2 19:37 Helene Nicholas, EZRA is Primary Nurse. ca1 19:37 Dano Pascual MD is Attending Physician. pkl 19:37 Arm band placed on right wrist. ca1 19:42 Triage completed. ca1 20:03 Patient has correct armband on for positive identification. Placed in gown. Bed in low ca1 position. Call light in reach. Side rails up X 1. assistant professor of archaeology on. Pulse ox on. Sitter at bedside. 20:03 Maintain EMS IV. Dressing intact. Good blood return noted. Site clean \T\ dry. Gauge \T\ ca 1 site: 18 at LAC. 20:10 Inserted saline lock: 22 gauge in left hand, using aseptic technique. Blood collected. ca1 21:10 Patient moved to radiology via stretcher. ca1 21:16 XRAY Chest (1 view) In Process Unspecified. EDMS 21:16 Knee Left 2 View XRAY In Process Unspecified. EDMS 21:16 Humerus Right XRAY In Process Unspecified. EDMS 21:17 Wrist Right 3 View XRAY In Process Unspecified. EDMS 22:[address] via stretcher. ca1 23:30 No provider procedures requiring assistance completed. ca1 23:54 CT Traumagram (Head C Spine CAP W Con) In Process Unspecified. EDMS 23:54 Upper Ext Wo Con W/ Mpr In Process Unspecified. EDMS 05/22 00:56 Cristi Keller MD is Hospitalizing Provider. pkl 01:16 Report given to EZRA Martin. ca1 02:11 Patient admitted, IV remains in place. 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 Exp: ca1 01/27/2021. Lot #: [id number]. } Route: IM; Site: right deltoid; 01:19 Follow up: Response: No adverse reaction ca1 Outcome: 01:00 Decision to Hospitalize by Provider. pkl 02:10 Admitted to Med/surg accompanied by tech, via wheelchair, with chart, Report called to christian Laurent Rn 02:10 Condition: good 02:10 Instructed on the need for admit. 02:12 Patient left the ED. tl1 Signatures: Dispatcher [employer] Dano Cruz MD MD pkl Yudy Garcia RN RN tl1 Lizette Conrad Jacob 3 Helene Nicholas RN RN ca1 Corrections: (The following items were deleted from the chart) 05/21 19:48 19:37 Initial Sepsis Screen: Does the patient meet any 2 criteria? Temp <36.0*C ca1 (96.8*F)) or > 38.3*C (100.9*F). HR > 90 bpm. Does the patient have a suspected source of infection? No. Patient's initial sepsis screen is negative. ca1 22:23 21:10 Patient moved to radiology via wheelchair. ca1 ca1 23:29 23:22 Reassessment: Patient appears in no apparent distress at this time. Patient ca1 and/or family updated on plan of care and expected duration. Pain level reassessed. Patient is alert, oriented x 3, equal unlabored respirations, skin warm/dry/pink. Pt back from CT scan ca1 23:59 23:22 BP 116 / 74; Pulse 98bpm; Resp 16bpm; Spontaneous; Pulse Ox 97% 3 lpm Nasal ca1 Cannula; ca1 05/22 00:51 00:48 Resp 15bpm; Pulse Ox 92% RA; ca1 ca1 01:18 01:00 Reassessment: Patient appears in no apparent distress at this time. Patient is ca1 alert, oriented x 3, equal unlabored respirations, skin warm/dry/pink. Pt transferred to Room \T\ via wheelchair. ca1
[2019-05-22] MEDS ORDERED: TETANUS & DIPHTHERIA TOX,ADULT 0.5 ML VIAL ONE (01:17)
[2019-05-22] MEDS ORDERED: ACETAMINOPHEN 500 MG TAB PO PRN (01:39)
[2019-05-22] MEDS ORDERED: IPRATROPIUM BROM 0.5MG/2.5ML NEB PRN (01:39)
[2019-05-22] MEDS ORDERED: ALBUTEROL 2.5 MG/3 ML NEB SOL NEB PRN (01:39)
[2019-05-22] MEDS ORDERED: ONDANSETRON 4 MG/2 ML VIAL IV PRN (01:39)
--- NOTE | 2019-05-22 01:40 | P.HP ---
Certification for Inpatient Patient admitted to: Inpatient With expected LOS: >2 Midnights Patient will require the following post-hospital care: None Practitioner: I am a practitioner with admitting privileges, knowledge of patient current condition, hospital course, and medical plan of care. Services: Services provided to patient in accordance with Admission requirements found in Title 42 Section 412.3 of the Code of Federal Regulations Patient History Date of Service: 05/22/19 Reason for admission: Fever, weakness, s/p fall, tachycardic, hypoxic History of Present Illness: Patient is a 73-year-old gentleman who has a history of rheumatoid arthritis and prior history of stroke, who presents to the hospital with generalized weakness after suffering a fall. He said he fell in the driveway and he stumbled about 15 ft. He has scraped himself up on the left side but also hit the right arm pretty hard. Afterwards, he was having pain diffusely but mainly in the left upper abdominal quadrants. He came to the hospital because he was starting to feel worse. He was not really sure exactly why symptoms were worsening. In the emergency room he had a temp of a 101 with a heart rate in the 120s. He was hypoxic satting 92% on 3 L. because he had so many makes symptoms and we were unable to pinpoint exactly what was causing his multiple symptoms decision was made to admit to the hospital. In the ER patient had trauma scan performed which did not reveal any acute pathology. He does have excruciating pain in the left upper quadrant which is tender to even mild palpation. However, the CT scan did not reveal any pathology in that area. At this time he will be admitted to the hospital for further workup. His ABGs did reveal he was slightly hypoxic. Allergies levofloxacin [From Levaquin] Allergy (Verified 12/19/18 21:17) Itching Home Medications: Aspirin 1 tab PO DAILY 12/19/18 Atorvastatin Calcium 1 tab PO BEDTIME 12/19/18 Glimepiride 1 tab PO DAILY 12/19/18 Losartan Potassium 1 tab PO DAILY 12/19/18 Meloxicam 15 mg PO DAILY 12/19/18 Metformin HCl 1 tab PO BID 12/19/18 Rivaroxaban [Xarelto] 20 mg PO DAILY #90 tablet 12/22/18 Sotalol HCl [Betapace*] 80 mg PO BID 6AM 6PM 30 Days #60 tab 12/22/18 - Past Medical/Surgical History Diabetic: Yes -: CVA -: HTN -: CHF -: neuropathy -: degenerative disc -: hyperlipidemia -: NIDDM -: BRAINSTEM STROKE 1998 -: hernia repair -: tonsillectomy -: adenoidectomy -: Left shoulder repair -: umbilical hernia repair - Family History Father Medical History: Cancer, Other (see notes) Notes: lymphoma Brother Medical History: Lung disease, Cancer Sister Medical History: Lung disease - Social History Smoking Status: Current every day smoker Alcohol use: Yes CD- Drugs: No Caffeine use: Yes Review of Systems 10-point ROS is otherwise unremarkable Physical Examination - Vital Signs Temperature: 98.9 F Blood Pressure: 80/50 Pulse: 125 Respirations: 18 Pulse Ox (%): 96 - Physical Exam General: Alert, In no apparent distress, Oriented x3 HEENT: Atraumatic, Normocephalic, PERRLA, Mucous membr. moist/pink Neck: Supple Respiratory: Clear to auscultation bilaterally, Normal air movement Cardiovascular: Regular rate/rhythm, Normal S1 S2, Systolic murmur Gastrointestinal: Normal bowel sounds, Soft and benign, Non-distended, No tenderness Musculoskeletal: No clubbing, No swelling Neurological: Normal strength at 5/5 x4 extr, Normal tone, Sensation intact, Cranial nerves 3-12 intact - Studies Laboratory Data (last 24 hrs) 05/21/19 : Creatinine 1.42 H 05/21/19 20:14: Lipase 115 05/21/19 20:14: PT 24.0 H, INR 2.09 05/21/19 20:14: WBC 11.4 H, Hgb 15.0, Hct 47.7, Plt Count 162 05/21/19 20:14: Sodium 136, Potassium 4.9, BUN 22 H, Creatinine 1.38 H, Glucose 291 H, Magnesium 1.7 L D, Total Bilirubin 0.8, AST 11 L, ALT 19, Alkaline Phosphatase 103 Assessment & Plan - Problems (Diagnosis) (1) Atrial fibrillation Current Visit: No Status: Acute Qualifiers: Atrial fibrillation type: unspecified Qualified Code(s): I48.91 - Unspecified atrial fibrillation (2) CAD (coronary artery disease) of artery bypass graft Current Visit: No Status: Acute Qualifiers: [place] vs. transplanted heart: [place] heart (3) CHF (congestive heart failure) Current Visit: No Status: Acute Qualifiers: Heart failure type: systolic (4) Congestive heart failure Onset Date: 11/12/15 Current Visit: No Status: Acute Qualifiers: Heart failure type: right heart failure due to left heart failure Qualified Code(s): I50.814 - Right heart failure due to left heart failure (5) Diabetes mellitus Onset Date: 04/11/16 Current Visit: No Status: Acute Qualifiers: Diabetes mellitus type: type 2 Diabetes mellitus buttermaker insulin use: without chcf use Diabetes mellitus complication status: without complication Qualified Code(s): E11.9 - Type 2 diabetes mellitus without complications (6) Diabetes mellitus type 2 with complications Current Visit: No Status: Acute (7) HTN (hypertension) Current Visit: No Status: Acute Qualifiers: Hypertension type: essential hypertension Qualified Code(s): I10 - Essential (primary) hypertension (8) Hyperlipidemia Current Visit: No Status: Acute Qualifiers: Hyperlipidemia type: pure hypercholesterolemia Qualified Code(s): E78.00 - Pure hypercholesterolemia, unspecified; E78.0 - Pure hypercholesterolemia (9) Osteoarthritis Current Visit: No Status: Acute (10) Systolic CHF, acute Current Visit: No Status: Acute (11) Rheumatoid arthritis Current Visit: Yes Status: Acute - Plan Plan: 1. Robbins culture and review chest x-ray 2. Hold antibiotics for now pending culture results 3. Possible rheumatoid flare up will give 1 dose of hydrocortisone and see if his symptoms improve 4. Repeat chest x-ray and reassess her abdominal symptoms over the next 24 hr 5. Monitor oxygenation closely 6. Monitor labs as well 7. GI and DVT prophylaxis Discharge Plan: Home Plan to discharge in: Greater than 2 days - Advance Directives Does patient have a Living Will: Yes Does patient have a Durable POA for Healthcare: Yes - Code Status/Comfort Care Code Status Assessed: Yes Code Status: Full Code Critical Care: No Time Spent Managing PTS Care (In Minutes): 45
[2019-05-22] MEDS ORDERED: NA CHLORIDE 0.9% 1,000 ML IV SCH (02:00)
[2019-05-22 02:24] VITALS: BMI 35.2
[2019-05-22] MEDS ORDERED: MORPHINE 2 MG/ML SYR IV ONE (03:41)
[2019-05-22] MEDS ORDERED: HYDROCORTISONE SUC 100 MG INJ IV SCH (04:00)
[2019-05-22] MEDS ORDERED: NS 0.9% VIAL 10 ML ONE (04:02)
[2019-05-22] MEDS ORDERED: MAGNESIUM SULFATE 1 gm IVPB 1 GM/100 ML BAG IV ONE (04:28)
[2019-05-22] MEDS: CODEINE 30MG/APAP 300MG TAB PO PRN ×2 (07:40→16:15)
[2019-05-22] MEDS ORDERED: PNEUMOCOCCAL VACCINE 0.5 ML IMVAC ONE (08:00)
--- NOTE | 2019-05-22 08:14 | RAD REPORT ---
EXAM DESCRIPTION: RAD - Humerus Right - 05/21/2019 9:17 pm CLINICAL HISTORY: Fall, right arm pain COMPARISON: None. FINDINGS: No fracture is identified. There is no dislocation or periosteal reaction noted. Shoulder and elbow joint degenerative changes are present with both joints only partially imaged. Chronic rota tor cuff tear change suspected. Degenerative calcification present at the triceps attachment to the u single needle operator. No suspicious soft tissue finding. IMPRESSION: No right humerus fracture identified. Degenerative changes are present at both the shoulder and elbow joints, neither of which are adequate ly visualized for full assessment. Followup directed joint imaging can be performed as clinical findi ngs warrant.
--- NOTE | 2019-05-22 08:15 | RAD REPORT ---
EXAM DESCRIPTION: RAD - Chest Single View - 05/21/2019 9:16 pm CLINICAL HISTORY: Fever, fall, shortness of breath COMPARISON: November 2018 TECHNIQUE: AP portable chest image was obtained 2108 hours . FINDINGS: Lung volumes are low. No peripheral mass or consolidation identified. Lung markings are le ss prominent than seen in November. Heart size is upper normal to slightly enlarged. This is a stable presentation with no vascular engorgement. No measurable pleural effusion and no pneumothorax. No acu te bony abnormality seen. No acute aortic findings suspected. IMPRESSION: Chronic chest findings are present as detailed. No acute chest finding noted.
--- NOTE | 2019-05-22 08:20 | RAD REPORT ---
EXAM DESCRIPTION: RAD - Wrist Right 3 View - 05/21/2019 9:17 pm CLINICAL HISTORY: Fall, wrist pain COMPARISON: None. FINDINGS: No acute fracture is identifiable. Patient has very severe degenerative change at the wris t joint. Large areas of degenerative cystic change present in the distal radius with partial collapse of the articular surface near the radial styloid. Degenerative spurs are seen along the articular ma rgins of the radius and ulna. Radiocarpal joint space is effaced. Slight ventral subluxation deformit y is present. There is partial collapse of the scaphoid and lunate bones. Extensive calcifications ar e present in the radiocarpal joint space. Advanced degenerative changes are present as well at the trapezium first metacarpal articulation and the scaphoid articulation with the trapezium. MCP joint space narrowing is present. No foreign body. IMPRESSION: Acute fracture of the right wrist is not identified. 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
--- NOTE | 2019-05-22 08:20 | RAD REPORT ---
EXAM DESCRIPTION: RAD - Knee Left 2 View - 05/21/2019 9:18 pm CLINICAL HISTORY: Fall, left knee pain COMPARISON: None. FINDINGS: No fracture, dislocation or periosteal reaction.No measurable joint effusion seen. No join t space narrowing. Arterial tree calcifications are present. Calcifications are seen along the joint capsule. Calcified loose body is not confirmed. IMPRESSION: Mild degenerative change with no acute bone or joint finding. Clinical concerns for internal derangement or occult bony injury could be further assessed with MR im aging.
--- NOTE | 2019-05-22 08:56 | EKG ---
Test Date: 2019-05-22 Test Time: 02:38:39 Fender Repairer: RT Calvo MEASUREMENT RESULTS: Intervals: Rate: 98 MS: 234 QRSD: 152 QT: 380 QTc: 485 [employer]: P: 107 MS: 234 QRS: -62 T: 95 INTERPRETIVE STATEMENTS: Sinus rhythm with 1st degree AV block with premature atrial complexes with aberrant conduction Left axis deviation Right bundle branch block Inferior infarct, age undetermined Anterior infarct, age undetermined T wave abnormality, consider lateral ischemia Abnormal ECG Compared to ECG 12/19/2018 23:26:23 Atrial fibrillation no longer present Myocardial infarct finding still present Electronically Signed On 05-22-19 08:56:19 CDT by Jhoan Hicks
[2019-05-22] MEDS ORDERED: ENOXAPARIN 40 MG/0.4 ML SQ SCH (09:00)
[2019-05-22 11:35] LABS: Urine Appearance CLEAR; Urine Bilirubin NEGATIVE (NEG); Urine Blood NEGATIVE (NEG); Urine Color YELLOW; Urine Glucose 3+ (NEG); Urine Protein TRACE (NEG); Urine Specific Gravity >=1.030 (1.005-1.030); Urine Urobilinogen 0.2 mg/dL (0.2-1.0)
[2019-05-22 11:38] LABS: Urine Microscopic Reflex ORDER UMIC
[2019-05-22 11:42] LABS: Urine Bacteria NONE SEEN /HPF (NONE SEEN); Urine Culture Reflex Order NOT NEEDED; Urine RBC <5 /HPF (NONE SEEN)
[2019-05-22] MEDS ORDERED: D50W 25 GM/50 ML SYRINGE IV PRN (16:51)
[2019-05-22] MEDS ORDERED: GLUCAGON 1 MG/VIAL IM PRN (16:51)
[2019-05-22] MEDS: METFORMIN HCL 500 MG TAB PO SCH (17:20)
[2019-05-22] MEDS ORDERED: ATORVASTATIN 40 MG TAB PO SCH (21:00)
[2019-05-22] MEDS: ACETAMINOPHEN 500 MG TAB PO SCH (21:23)
[2019-05-22] MEDS: CARVEDILOL 3.125 MG TAB PO SCH (21:24)
[2019-05-22] MEDS: SACUBITRIL/VALSARTAN 49/51 MG TAB PO SCH (21:24)
[2019-05-22] MEDS: GABAPENTIN 300 MG CAP PO SCH (21:25)
[2019-05-22] MEDS: INSULIN -REGULAR HUMAN 50 UNIT/0.5 ML ML SQ SCH (21:25)
[2019-05-23] MEDS: CODEINE 30MG/APAP 300MG TAB PO PRN (04:41)
[2019-05-23 06:12] LABS: Absolute Lymphocytes (CBC) 1.3 K/uL (0.7-4.9); Basophils % 1.3 % (0-1.3); Hematocrit 44.9 % (39.6-49.0); Lymphocytes % 22.6 % (15.3-44.8); MPV 10.1 fL (7.6-11.3); Monocytes % 12.2 % (3.3-12.3); RBC Red Blood Cell Count 4.95 M/uL (4.33-5.43)
[2019-05-23 06:18] LABS: Albumin 2.8 g/dL (3.4-5.0); Bilirubin Total 0.6 mg/dL (0.2-1.0); Phosphorus 3.1 mg/dL (2.5-4.9); Potassium 4.5 mmol/L (3.5-5.1); Protein, Total 6.9 g/dL (6.4-8.2)
[2019-05-23] MEDS ORDERED: PANTOPRAZOLE 40MG TABLET PO SCH (06:30)
[2019-05-23] MEDS ORDERED: RIVAROXABAN 20 MG TABLET PO SCH (09:00)
[2019-05-23] MEDS: INSULIN -REGULAR HUMAN 50 UNIT/0.5 ML ML SQ SCH ×2 (09:03→11:30)
[2019-05-23] MEDS: CARVEDILOL 3.125 MG TAB PO SCH (09:03)
[2019-05-23] MEDS: ACETAMINOPHEN 500 MG TAB PO SCH (09:04)
[2019-05-23] MEDS: SACUBITRIL/VALSARTAN 49/51 MG TAB PO SCH (09:04)
[2019-05-23] MEDS: GABAPENTIN 300 MG CAP PO SCH (09:05)
[2019-05-23] MEDS: METFORMIN HCL 500 MG TAB PO SCH (09:05)
[2019-05-23 09:08] VITALS: BP 124/59
[2019-05-23 09:12] VITALS: TEMP 97
--- NOTE | 2019-05-23 11:44 | RAD REPORT ---
EXAM DESCRIPTION: CT - Head C Spine Justin La - 05/21/2019 11:53 pm CLINICAL HISTORY: 73 years Male fall COMPARISON: None TECHNIQUE: Images were obtained in axial, sagittal, and coronal planes. Intravenous contrast was adm inistered. This exam was performed according to our departmental dose-optimization program which includes use of Automated Exposure Control, adjustment of the mA and/or kV according to patient size and/or use of i terative reconstruction technique. FINDINGS: CT brain: Ventricular system appears age appropriate in size. No abnormal areas of increas ed or decreased attenuation are seen involving the brain parenchyma. No extra-axial fluid collections noted. No evidence for skull fracture. Symmetric aeration mastoid air cells bilaterally. Unremarkabl e paranasal sinuses. CT cervical spine: Height of the vertebral bodies is intact. Satisfactory alignment articular facets. Intact odontoid and predental space. Prevertebral soft tissues appear normal. Intact ring C1. Wire Weaver Helper ior elements intact all levels. Marked anterior osteophyte formation multiple levels. Marginal spur f ormation with neural foraminal narrowing bilaterally multiple levels. Central and right protrusion C5 -C6 osteophyte disc complex. Moderate narrowing of spinal canal. CT CHEST: No aortic dissection or dilatation. Enlarged heart. Coronary artery calcification. No fill ing defects arteries bilaterally. No pericardial or pleural effusions bilaterally. No adenopathy. Suleman cified right paratracheal lymph nodes. No pneumothorax. No lung parenchymal infiltrates or nodules se en. No acute osseous abnormality involving the thorax. No sternal fracture. Marked multilevel osteoar thritic change thoracic spine. Mitral annular calcification. CT abdomen and pelvis: No abnormality involving the liver, pancreas, gallbladder, or adrenal glands b ilaterally. Plain is enlarged measuring 13.9 cm in greatest dimension. Symmetric renal function bilat erally. No hydronephrosis bilaterally. Unremarkable bladder. Enlarged prostate gland. Darling. Within nor mal limits. No bowel obstruction, perforation, or inflammation. No dilatation abdominal aorta. No doyle nopathy or abnormal fluid collections. No acute osseous abnormality. IMPRESSION: No acute intracranial abnormality. No evidence for hemorrhage, mass lesion, or large acu te infarction. No acute fracture or subluxation involving the cervical spine line. Moderately severe multilevel oste oarthritic change. No acute intrathoracic abnormality. No acute intra-abdominal abnormality. No evidence for large organ laceration. Electronically signed by: Kasandra Renteria MD 05/22/2019 12:06 AM CDT Due to temporary technical issues with the PACS/Fluency reporting system, reports are being signed by the in house radiologist as a courtesy to ensure prompt reporting. The interpreting radiologist is f ully responsible for the content of the report.
--- NOTE | 2019-05-23 11:46 | RAD REPORT ---
EXAM DESCRIPTION: CT - Upper Ext Wo Con W/ Mpr - 05/21/2019 11:53 pm CLINICAL HISTORY: The patient is 73 years old and is Male; FALL Upper Ext Wo Con W/ Mpr TECHNIQUE: Axial computed tomography images of the right upper extremity without intravenous contras t. Sagittal and coronal reformatted images were created and reviewed. This CT exam was performed using one or more of the following dose reduction techniques: automated exposure control, adjustmen t of the mA and/or kV according to patient size, and/or use of iterative reconstruction technique. COMPARISON: No relevant prior studies available. FINDINGS: BONES/JOINTS: Extensive degenerative change of the bones of the wrist with huge subchond ral cysts formation and sclerosis throughout the carpal bones, distal radius, distal ulna. Chondrocal cinosis of the intercarpal, radiocarpal, intercarpal joint is noted. Separation of the scaphoid and l unate is present with proximal migration of the capitate. No acute fracture. SOFT TISSUES: Unremarkable. IMPRESSION: Changes of associated scapholunate advanced collapse in the setting of CPPD arthropathy is noted with associated severe degenerative change. No acute fracture. Electronically signed by: Cathy Guadalupe MD 05/22/2019 12:06 AM CDT Due to temporary technical issues with the PACS/Fluency reporting system, reports are being signed by the in house radiologist as a courtesy to ensure prompt reporting. The interpreting radiologist is f preciously responsible for the content of the report.
[2019-05-23 13:51] VITALS: O2SAT 94
--- NOTE | 2019-05-24 14:54 | EKG ---
Test Date: 2019-05-21 Test Time: 19:49:36 Cloth Weaver: GARTH MEASUREMENT RESULTS: Intervals: Rate: 122 AK: 144 QRSD: 152 QT: 358 QTc: 510 [place]: P: AK: 144 QRS: -72 T: 64 INTERPRETIVE STATEMENTS: Sinus tachycardia Left axis deviation Right bundle branch block Inferior infarct, age undetermined Anterolateral infarct, age undetermined Abnormal ECG Compared to ECG 12/19/2018 23:26:23 Atrial fibrillation no longer present Myocardial infarct finding still present Electronically Signed On 05-24-19 14:47:57 CDT by Jhoan Hicks
== END 2019-05-23 13:17 | disposition home or self-care (01) | DRG 308 ==
LOC: ER 19:33 → ERHOLD 05-22 01:39 → 2ND 05-22 01:59
PROVIDERS: ADMIT Hospitalist; ATTEND Internal Medicine
DX: I48.91 Unspecified atrial fibrillation (principal); I50.23 Acute on chronic systolic (congestive) heart failure; I25.810 Atherosclerosis of coronary artery bypass graft(s) without angina pectoris; R09.02 Hypoxemia; I25.10 Atherosclerotic heart disease of native coronary artery without angina pectoris; I11.0 Hypertensive heart disease with heart failure; F17.210 Nicotine dependence, cigarettes, uncomplicated; E78.00 Pure hypercholesterolemia, unspecified; M06.9 Rheumatoid arthritis, unspecified; E11.42 Type 2 diabetes mellitus with diabetic polyneuropathy; M19.90 Unspecified osteoarthritis, unspecified site; Z91.81 History of falling; Z23 Encounter for immunization; Z79.82 Long term (current) use of aspirin; Z86.73 Personal history of transient ischemic attack (TIA), and cerebral infarction without residual deficits
CPT/HCPCS: 36415; 70450; 71045; 71260; 72125; 73200; 74177; 76377; 80048; 80053; 80076; 81003; 81015; 82805; 82962; 83605; 83690; 83735; 83880; 84100; 84145; 84484; 85025; 85610; 85652; 86140; 87040; 87070; 87081; 87804; 90471; 90670; 90714; 93005; 94760; 96360; 96361; 99285; J1650; J1720; J2270; J3475; J7030

== ENCOUNTER 2019-08-11 12:46 | Emergency (ER) | payer OTHER ==
--- OUTSIDE RECORDS SUMMARY | 2019-08-11 12:48 | XMS REPORT | Clinical Summary ---
:1945 Author Organization [facility] Address [address] [place] [address] Care Team Providers Name Role Phone Jeffrey [...] Not on file Implants Implanted Type Area Testing Manager Device Shelf Model / Identifier Expiration Serial / Lot Date Stent Epic [id number] - [id number] Stents-Per Right: [id number] / Implanted: Qty: 1 on 06/10/2016 by Aman Colunga MD ipheral Leg SCI: PERIPHERAL / INTERV [id number] Grft José Mrtrstm 200mg [id number] - [id number] Tissue Right: [employer] 2017 [id number] / Implanted: Qty: 1 on 06/12/2016 by Antoine Mac, DPM Graft/Subs Foot / titute [id number] Tissue Nucell Lg W/Matrix Nc-1002 - [id number] Tissue Right: NUTECH MED NC-1002 / Implanted: Qty: 1 on 06/12/2016 by Antoine Mac, DPM Graft/Subs Foot / titute [id number] Grft José Mrtrstm 500 Mg [id number] - [id number] Tissue Right: [employer] [id number] / Implanted: Qty: 1 on 08/28/2016 by Antoine Mac, DPM Graft/Subs Toe [id number] / titute [id number] Tissue Nucell Med W/Matrix Nc-1001 - [id number] Tissue Right: [employer]UTE[employer] MED 03/05/2017 NC-1001 / Implanted: Qty: 1 on 08/28/2016 by Antoine Mac DPM Graft/Subs Toe [id number] / titute Results Not on fileafter 08/10/2018 Insurance Payer Benefit Plan / Group Subscriber ID Type Phone Address CARE IMPROVEMENT MEDICARE MGD CARE IMPROVEMENT PLUS xxxxxxxxx CARE Advance Directives For more information, please contact:[address] [phone] Code Status Date Activated Date Inactivated Comments Full Code 06/10/2016 4:34 PM 06/13/2016 7:26 PM This code status was determined by: Patient Full Code 06/09/2016 8:54 PM 06/10/2016 4:34 PM This code status was determined by: Patient
[2019-08-11] MEDS ORDERED: IBUPROFEN 400 MG TAB ONE (15:58)
[2019-08-11] MEDS ORDERED: HYDROCODONE/APAP 7.5/325 MG TAB ONE (15:58)
--- NOTE | 2019-08-11 17:56 | EDPHYS ---
Physician Documentation [facility] Name: Chad Reyna Jr Age: 73 yrs Sex: Male : 1945 Arrival Date: 08/11/2019 Time: 12:50 Bed 10 Private MD: ED Physician Cristi Ricketts HPI: 08/11 15:45 This 73 yrs old Male presents to ER via EMS with complaints of Knee Pain. cp 15:45 The patient presents with pain, that is acute. The complaints affect the left knee. cp Onset: The symptoms/episode began/occurred for past couple weeks, became worse yesterday. 15:45 Modifying factors: the symptoms are aggravated by weight bearing, bending knee. cp Associated signs and symptoms: Pertinent positives: left hip pain, Pertinent negatives calf tenderness, swelling, tingling, warmth. Treatment prior to arrival includes: no previous treatment. Patient denies known injury. Historical: - Allergies: 13:42 Levofloxacin; ss - Home Meds: 13:42 atorvastatin 40 mg Oral tab At bedtime. [Active]; carvedilol 3.125 mg Oral tab 1 tab 2 ss times per day [Active]; clopidogrel 75 mg Oral tab 1 tab once daily [Active]; Entresto 49-51 mg Oral tab 1 tab 2 times per day [Active]; furosemide 40 mg Oral tab 1 tab once daily [Active]; gabapentin 300 mg Oral cap 1 cap twice a day [Active]; glimepiride 4 mg Oral tab 1 tab BID [Active]; Humulin 70/30 100 unit/mL (70-30) Sub-Q susp as needed [Active]; losartan 50 mg Oral tab 1 tab once daily [Active]; meloxicam 15 mg Oral tab 1 tab once daily [Active]; metformin 1,000 mg Oral tab 1 tab 2 times per day [Active]; spironolactone 25 mg Oral tab 1 tab 2 times per day [Active]; Xarelto 20 mg Oral tab 1 tab once daily [Active]; - PMHx: 13:42 Arthritis; CHF; CVA; Hyperlipidemia; Diabetes - NIDDM; PERIPHERAL NEUROPATHY; ss Pneumonia; Rheumatoid Arthritis; - PSHx: 13:42 leg stents; foot surg; arm surg; ss - Immunization history:: Adult Immunizations up to date. - Ebola Screening: : Patient negative for fever greater than or equal to 101.5 degrees Fahrenheit, and additional compatible Ebola Virus Disease symptoms Patient denies exposure to infectious person Patient denies travel to an Ebola-affected area in the 21 days before illness onset No symptoms or risks identified at this time. - Social history:: Smoking status: unknown. ROS: 15:50 Constitutional: Negative for body aches, chills, fever, poor PO intake. cp 15:50 Eyes: Negative for injury, pain, redness, and discharge. cp 15:50 MS/extremity: Positive for decreased range of motion, pain, of the left knee and left cp hip, Negative for injury or acute deformity, swelling, tenderness, warmth. 15:50 Cardiovascular: Negative for chest pain, palpitations. cp 15:50 Respiratory: Negative for cough, shortness of breath, wheezing. 15:50 Abdomen/GI: Negative for abdominal pain. 15:50 Back: Negative for pain at rest, pain with movement. 15:50 Neuro: Negative for headache, weakness. 15:50 All other systems are negative. Exam: 16:00 Constitutional: The patient appears in no acute distress, alert, awake, non-toxic, well cp developed, well nourished. 16:00 Head/Face: Normocephalic, atraumatic. cp 16:00 Musculoskeletal/extremity: ROM: limited passive range of motion due to pain, in the cp left knee, Perfusion: the extremity is normally perfused throughout, Sensation intact. Joints: All joints are normal except the left hip and left knee displays pain at rest, painful range of motion, tenderness, Weight bearing: is unable to bear weight. 16:00 Neck: Exam negative for acute changes. cp 16:00 Chest/axilla: Inspection: normal. 16:00 Cardiovascular: Rate: normal. 16:00 Respiratory: the patient does not display signs of respiratory distress, Respirations: normal, no use of accessory muscles, no retractions, labored breathing, is not present. 16:00 Back: pain, is absent. 16:00 Skin: no rash present. Vital Signs: 13:15 BP 152 / 84; Pulse 89; Resp 16 S; Temp 97.4; Pulse Ox 95% on R/A; iw MDM: 15:14 Patient medically screened. cp 16:00 Differential diagnosis: closed fracture, contusion, tendonitis. cp 17:53 Data reviewed: vital signs, nurses notes, radiologic studies, plain films. cp 17:53 Test interpretation: by ED physician or midlevel provider: xrays of left hip negative cp for fracture and xrays of left knee negative for fracture. Response to treatment: the patient's symptoms have markedly improved after treatment, and as a result, I will discharge patient. 08/11 15:42 Order name: XRAY Knee LEFT 3 view cp 08/11 15:42 Order name: XRAY Hip LEFT 2 view cp Administered Medications: 16:00 Drug: Hydrocodone-Acetaminophen (7.5 mg-325 mg) 1 tabs Route: PO; iw 18:13 Follow up: Response: No adverse reaction; Pain is decreased ss 16:00 Drug: Ibuprofen 800 mg Route: PO; iw 18:13 Follow up: Response: No adverse reaction; Pain is decreased ss Disposition: 18:43 Co-signature as Attending Physician, Cristi Ricketts MD. ma2 Disposition: 08/11/19 17:54 Discharged to Home. Impression: Pain in left hip, Pain in left knee. - Condition is Stable. - Discharge Instructions: Knee Pain, Hip Pain. - Prescriptions for Naprosyn 500 mg Oral Tablet - take 1 tablet by ORAL route 2 times per day take with food; 20 tablet. Tramadol 50 mg Oral Tablet - take 1 tablet by ORAL route every 8 hours as needed; 20 tablet. - Medication Reconciliation Form, Thank You Letter, Antibiotic Education, Prescription Opioid Use form. - Follow up: Alton Delaney MD; When: 2 - 3 days; Reason: Recheck today's complaints. - Problem is new. - Symptoms have improved. Signatures: Dispatcher [employer] EDBecca Braun RN RN Gloria Kumar RN RN ss Loco Pearce PA PA cp Cristi Ricketts MD MD ma2 Corrections: (The following items were deleted from the chart) 18:13 17:54 08/11/2019 17:54 Discharged to Home. Impression: Pain in left hip; Pain in left ss knee. Condition is Stable. Forms are Medication Reconciliation Form, Thank You Letter, Antibiotic Education, Prescription Opioid Use. Follow up: Alton Delaney; When: 2 - 3 days; Reason: Recheck today's complaints. Problem is new. Symptoms have improved. cp
--- NOTE | 2019-08-11 17:56 | ER ---
Nurse's Notes [facility] Name: Chad Reyna Jr Age: 73 yrs Sex: Male : 1945 Arrival Date: 08/11/2019 Time: 12:50 Bed 10 Private MD: Diagnosis: Pain in left hip;Pain in left knee Presentation: 08/11 12:56 Presenting complaint: EMS states: left knee pain, reinjured knee yesterday. Transition iw of care: patient was not received from another setting of care. Onset of symptoms was August 11, 2019. Risk Assessment: Do you want to hurt yourself or someone else? Patient reports no desire to harm self or others. Initial Sepsis Screen: Does the patient meet any 2 criteria? No. Patient's initial sepsis screen is negative. Does the patient have a suspected source of infection? No. Patient's initial sepsis screen is negative. Care prior to arrival: IV initiated. 18 GA, in the left wrist. 12:56 Method Of Arrival: EMS: [facility] iw 12:56 Acuity: SANDOVAL 4 iw Historical: - Allergies: 13:42 Levofloxacin; ss - Home Meds: 13:42 atorvastatin 40 mg Oral tab At bedtime. [Active]; carvedilol 3.125 mg Oral tab 1 tab 2 ss times per day [Active]; clopidogrel 75 mg Oral tab 1 tab once daily [Active]; Entresto 49-51 mg Oral tab 1 tab 2 times per day [Active]; furosemide 40 mg Oral tab 1 tab once daily [Active]; gabapentin 300 mg Oral cap 1 cap twice a day [Active]; glimepiride 4 mg Oral tab 1 tab BID [Active]; Humulin 70/30 100 unit/mL (70-30) Sub-Q susp as needed [Active]; losartan 50 mg Oral tab 1 tab once daily [Active]; meloxicam 15 mg Oral tab 1 tab once daily [Active]; metformin 1,000 mg Oral tab 1 tab 2 times per day [Active]; spironolactone 25 mg Oral tab 1 tab 2 times per day [Active]; Xarelto 20 mg Oral tab 1 tab once daily [Active]; - PMHx: 13:42 Arthritis; CHF; CVA; Hyperlipidemia; Diabetes - NIDDM; PERIPHERAL NEUROPATHY; ss Pneumonia; Rheumatoid Arthritis; - PSHx: 13:42 leg stents; foot surg; arm surg; ss - Immunization history:: Adult Immunizations up to date. - Ebola Screening: : Patient negative for fever greater than or equal to 101.5 degrees Fahrenheit, and additional compatible Ebola Virus Disease symptoms Patient denies exposure to infectious person Patient denies travel to an Ebola-affected area in the 21 days before illness onset No symptoms or risks identified at this time. - Social history:: Smoking status: unknown. Screenin:12 Abuse screen: Denies threats or abuse. Denies injuries from another. Nutritional iw screening: No deficits noted. Tuberculosis screening: No symptoms or risk factors identified. Fall Risk Fall in past 12 months (25 points). Assessment: 15:11 General: Appears in no apparent distress. Behavior is calm, cooperative. Pain: iw Complains of pain in left knee. Neuro: Level of Consciousness is awake, alert, obeys commands, Oriented to person, place, time, situation, Moves all extremities. Cardiovascular: Patient's skin is warm and dry. Respiratory: Respiratory effort is even, unlabored. Derm: Skin. Musculoskeletal: Range of motion: limited in left knee. 16:01 Reassessment: Patient appears in no apparent distress at this time. Patient and/or iw family updated on plan of care and expected duration. Pain level reassessed. Patient is alert, oriented x 3, equal unlabored respirations, skin warm/dry/pink. pt medicated for pain, awaiting radiology. 16:27 Reassessment: Patient appears in no apparent distress at this time. ss 17:17 Reassessment: Patient to XRAY at this time. Vital Signs: 13:15 BP 152 / 84; Pulse 89; Resp 16 S; Temp 97.4; Pulse Ox 95% on R/A; iw ED Course: 12:50 Patient arrived in ED. as 12:57 Triage completed. iw 13:43 Arm band placed on. ss 15:05 Becca Hollis, EZRA is Primary Nurse. iw 15:12 Loco Pearce PA is PHCP. cp 15:12 Cristi Ricketts MD is Attending Physician. cp 16:02 No provider procedures requiring assistance completed. Patient did not have IV access iw during this emergency room visit. 16:30 Patient has correct armband on for positive identification. Bed in low position. ss 17:49 XRAY Knee LEFT 3 view In Process Unspecified. EDMS 17:49 XRAY Hip LEFT 2 view In Process Unspecified. EDMS 17:54 Alton Delaney MD is Referral Physician. cp Administered Medications: 16:00 Drug: Hydrocodone-Acetaminophen (7.5 mg-325 mg) 1 tabs Route: PO; iw 18:13 Follow up: Response: No adverse reaction; Pain is decreased ss 16:00 Drug: Ibuprofen 800 mg Route: PO; iw 18:13 Follow up: Response: No adverse reaction; Pain is decreased ss Outcome: 17:54 Discharge ordered by MD. cp 18:13 Discharged to home via wheelchair. ss 18:13 Condition: good 18:13 Discharge instructions given to patient, family, Instructed on discharge instructions, follow up and referral plans. medication usage, Demonstrated understanding of instructions, follow-up care, medications, Prescriptions given X 2. 18:13 Patient left the ED. ss Signatures: Dispatcher [employer] EDKY Jerica Henao Irene, RN RN Gloria Kumar RN RN Loco Pearce, PA PA cp
--- NOTE | 2019-08-11 18:13 | RAD REPORT ---
EXAM DESCRIPTION: RAD - Hip Left 2 View - 08/11/2019 5:48 pm CLINICAL HISTORY: Left hip pain FINDINGS: No fracture or dislocation is seen. Mild osteoarthritis involves the left hip.
--- NOTE | 2019-08-11 18:15 | RAD REPORT ---
EXAM DESCRIPTION: RAD - Knee Left 3 View - 08/11/2019 5:49 pm CLINICAL HISTORY: Left knee pain FINDINGS: No fracture or dislocation is seen. The bones are osteoporotic. If the patient continues to have symptoms to suggest an occult fracture, ligamentous or meniscal inju ry then MRI would be recommended
[2019-08-11 18:57] VITALS: BP 152/84; TEMP 97.4; O2SAT 95
== END 2019-08-11 18:13 | disposition home or self-care (01) ==
LOC: ER 12:46
DX: M25.562 Pain in left knee (principal); M16.12 Unilateral primary osteoarthritis, left hip; E78.5 Hyperlipidemia, unspecified; E11.42 Type 2 diabetes mellitus with diabetic polyneuropathy; I50.9 Heart failure, unspecified; Z87.820 Personal history of traumatic brain injury; M06.9 Rheumatoid arthritis, unspecified
CPT/HCPCS: 99284

== ENCOUNTER 2022-02-02 23:19 | Observation (INO) | payer OTHER ==
--- OUTSIDE RECORDS SUMMARY | 2022-02-02 23:21 | XMS REPORT | Continuity of Care Document ---
:1945 Author Organization [facility] t Address [address] [place] [address] Dr. Mueller [address] [place] [id number] Care Team Providers Name Role Phone Riri Attending Clinician Unavailable Problems This patient has no known problems. Allergies, Adverse Reactions, Alerts This patient has no known allergies or adverse reactions. Medications This patient has no known medications. Procedures This patient has no known procedures. Encounters Start End Encounter Admission Attending Care Care Encounter Source Date/Time Date/Time Type Type Clinicians Facility Department ID 2021-12-25 [facility] [id number] [facility] [address] 13:07:44 [place] [address] [facility] 2021-12-25 [facility] [id number] [facility] [address] 11:53:39 [place] [address] [facility] 2021-12-25 [facility] [id number] [facility] [address] 11:00:24 [place] [address] [facility] 2021-12-[address] [facility] [id number] [address] 11:00:12 [place] [address] [facility] Results This patient has no known results.
[2022-02-03 01:20] LABS: Protime INR 1.16
[2022-02-03 01:21] LABS: Absolute Lymphocytes (CBC) 1.7 K/uL (0.7-4.9); Lymphocytes % 26.6 % (15.3-44.8); MPV 9.7 fL (7.6-11.3); RBC Red Blood Cell Count 4.44 M/uL (4.33-5.43)
[2022-02-03 01:30] LABS: Potassium 4.9 mmol/L (3.5-5.1)
[2022-02-03 01:31] LABS: Albumin 3.8 g/dL (3.4-5.0); Bilirubin Direct 0.3 mg/dL (0-0.2); Bilirubin Total 0.9 mg/dL (0.2-1.0); Magnesium 1.8 mg/dL (1.8-2.4); Protein, Total 7.2 g/dL (6.4-8.2); Troponin High Sensitivity 25.7 pg/mL (<58.9)
[2022-02-03 01:49] LABS: SARS-COV-2 RT PCR NEGATIVE (NEGATIVE)
--- NOTE | 2022-02-03 02:19 | ER ---
Nurse's Notes [facility] Name: Chad Reyna Jr Age: 76 yrs Sex: Male : 1945 Arrival Date: 02/02/2022 Time: 23:21 Bed 17 Private MD: Diagnosis: Anasarca;Acute on chronic combined systolic (congestive) and diastolic (congestive) heart failure;Chronic kidney disease, unspecified Presentation: 02/02 23:29 Chief complaint: Patient states: My ankles, calves, and stomach is swelling, I have CHF vc1 it has been a few years since I have had this problem. Used to when I would take my water pill the swelling would go down but it is not working like it used to. I breath fine when I am laying down but I'm Short of breath when I do anything. Coronavirus screen: Vaccine status: Patient reports receiving the 2nd dose of the covid vaccine. [employer]. Ebola Screen: No symptoms or risks identified at this time. Initial Sepsis Screen: Does the patient meet any 2 criteria? No. Patient's initial sepsis screen is negative. Does the patient have a suspected source of infection? No. Patient's initial sepsis screen is negative. Risk Assessment: Do you want to hurt yourself or someone else? Patient reports no desire to harm self or others. Onset of symptoms is unknown. 23:29 Method Of Arrival: Ambulatory vc1 23:29 Acuity: SANDOVAL 3 vc1 Triage Assessment: 23:37 General: Appears in no apparent distress. uncomfortable, obese, Behavior is calm, vc1 cooperative, appropriate for age. Pain: Denies pain. Cardiovascular: swelling of bilateral extremeties. GI: Abdomen is distended, noted to have ascites, Reports bloating. Historical: - Allergies: 23:33 Levofloxacin; vc1 - Home Meds: 23:33 metformin 1,000 mg Oral tab 1 tab 2 times per day [Active]; atorvastatin 40 mg Oral tab vc1 At bedtime. [Active]; carvedilol 3.125 mg Oral tab 1 tab 2 times per day [Active]; Entresto 49-51 mg Oral tab 1 tab 2 times per day [Active]; gabapentin 300 mg Oral cap 1 cap twice a day [Active]; furosemide 40 mg Oral tab 1 tab once daily [Active]; glimepiride 4 mg Oral tab 1 tab BID [Active]; Humulin 70/30 100 unit/mL (70-30) Sub-Q susp as needed [Active]; 23:38 Xarelto 20 mg Oral tab 1 tab once daily [Active]; vc1 - PMHx: 23:33 Arthritis; CHF; CVA; Diabetes - NIDDM; Hyperlipidemia; PERIPHERAL NEUROPATHY; vc1 Pneumonia; Rheumatoid Arthritis; - Immunization history:: Adult Immunizations up to date, Client reports receiving the 2nd dose of the Covid vaccine. - Social history:: Smoking status: Patient reports the use of cigarette tobacco products, smokes one-half pack cigarettes per day. Screenin/07 02:58 Abuse screen: Denies threats or abuse. Nutritional screening: No deficits noted. sv1 Tuberculosis screening: No symptoms or risk factors identified. Fall Risk No fall in past 12 months (0 pts). Secondary diagnosis (15 points) IV access (20 points). Ambulatory Aid- Crutches/Cane/Walker (15 pts). Gait- Weak (10 pts.). Mental Status- Oriented to own ability (0 pts). Assessment: 03:01 Reassessment: Resting quietly. No acute distress noted. . sv1 04:00 Reassessment: Report called to ozzie MUNGUIA. sv1 Vital Signs: 02/02 23:29 BP 142 / 87; Pulse 99; Resp 18; Pulse Ox 99% on R/A; Weight 107.95 kg; Height 5 ft. 9 vc1 in. (175.26 cm); 02/03 02:58 BP 139 / 81 LA Sitting (auto/reg); Pulse 96 MON; Resp 18 S; Pulse Ox 96% on R/A; sv1 02/02 23:29 Body Mass Index 35.15 (107.95 kg, 175.26 cm) vc1 ED Course: 02/02 23:21 Patient arrived in ED. es 23:33 Triage completed. vc1 23:37 Arm band placed on left wrist. vc1 02/03 00:26 Maximus Nicholas MD is Attending Physician. 7 00:39 Alton Denton, EZRA is Primary Nurse. sv1 00:59 COVID-19/FLU A+B/RSV (Document "Date of Onset" if Symptomatic) Sent. sv1 00:59 Liver (Hepatic) Function Sent. sv1 01:00 Basic Metabolic Panel Sent. sv1 01:00 CBC with Automated Diff Sent. sv1 01:00 Basic Metabolic Panel Sent. sv1 01:00 CBC with Diff Sent. sv1 01:00 LFT's Sent. sv1 01:01 XRAY Chest (1 view) In Process Unspecified. EDMS 01:02 Magnesium Sent. sv1 01:02 NT PRO-BNP Sent. sv1 01:02 PT-INR Sent. sv1 01:02 Troponin HS Sent. sv1 02:17 Isaías Schroeder MD is Hospitalizing Provider. [facility] 02:59 Patient has correct armband on for positive identification. Bed in low position. Call [facility] light in reach. Side rails up X2. Adult w/ patient. 02:59 No provider procedures requiring assistance completed. sv1 04:00 Patient admitted, IV remains in place. sv1 Administered Medications: 02:41 Drug: Gabapentin 300 mg Route: PO; sv1 03:59 Follow up: Response: No adverse reaction sv1 03:20 Drug: Lasix (furosemide) 60 mg Route: IVP; Site: right antecubital; sv1 Outcome: 02:19 Decision to Hospitalize by Provider. [facility] 04:00 Admitted to Tele accompanied by tech, via wheelchair, room 221. sv1 04:01 Condition: improved sv1 04:01 Instructed on the need for admit. 04:56 Patient left the ED. sv1 Signatures: Dispatcher [employer] Briana Hawkins Maurice, MD MD [facility] Alton Denton RN RN sv1 Rima Fox RN RN vc1 Corrections: (The following items were deleted from the chart) 03 23:39 23:33 Home Meds: clopidogrel 75 mg Oral tab 1 tab once daily; vc1 vc1
--- NOTE | 2022-02-03 02:20 | EDPHYS ---
Physician Documentation [facility] Name: Chad Reyna Jr Age: 76 yrs Sex: Male : 1945 Arrival Date: 02/02/2022 Time: 23:21 Bed 17 Private MD: ED Physician Maximus Nicholas HPI: 02/03 00:45 This 76 yrs old Male presents to ER via Ambulatory with complaints of Ankle Swelling, mh7 Leg Swelling, ABD SWELLING. 00:45 The patient presents with swelling. The complaints affect the abdomen, right leg and mh7 left leg. Context: The problem was sustained at home, resulted from an unknown cause, the patient can fully bear weight, the patient is able to ambulate, with mild difficulty, Problem is a result from a previous injury: No. Onset: The symptoms/episode began/occurred 3 week(s) ago. Modifying factors: The symptoms are alleviated by nothing. the symptoms are aggravated by movement. Associated signs and symptoms: Pertinent positives: swelling, Dyspnea on exertion, Pertinent negatives calf tenderness, fever, nausea, numbness, rash, tingling, vomiting, warmth, weakness. Treatment prior to arrival includes: no previous treatment. Severity of symptoms: At their worst the symptoms were moderate, 7 day(s) ago, in the emergency department the symptoms are unchanged. The patient has experienced similar episodes in the past, a few times. Historical: - Allergies: 02/02 23:33 Levofloxacin; vc1 - Home Meds: 23:33 metformin 1,000 mg Oral tab 1 tab 2 times per day [Active]; atorvastatin 40 mg Oral tab vc1 At bedtime. [Active]; carvedilol 3.125 mg Oral tab 1 tab 2 times per day [Active]; Entresto 49-51 mg Oral tab 1 tab 2 times per day [Active]; gabapentin 300 mg Oral cap 1 cap twice a day [Active]; furosemide 40 mg Oral tab 1 tab once daily [Active]; glimepiride 4 mg Oral tab 1 tab BID [Active]; Humulin 70/30 100 unit/mL (70-30) Sub-Q susp as needed [Active]; 23:38 Xarelto 20 mg Oral tab 1 tab once daily [Active]; vc1 - PMHx: 23:33 Arthritis; CHF; CVA; Diabetes - NIDDM; Hyperlipidemia; PERIPHERAL NEUROPATHY; vc1 Pneumonia; Rheumatoid Arthritis; - Immunization history:: Adult Immunizations up to date, Client reports receiving the 2nd dose of the Covid vaccine. - Social history:: Smoking status: Patient reports the use of cigarette tobacco products, smokes one-half pack cigarettes per day. ROS: 02/03 00:45 Constitutional: Negative for fever, chills, and weight loss, Eyes: Negative for injury, mh7 pain, redness, and discharge, ENT: Negative for injury, pain, and discharge, Neck: Negative for injury, pain, and swelling, Cardiovascular: Negative for chest pain, palpitations, and edema, Back: Negative for injury and pain, : Negative for injury, bleeding, discharge, and swelling, Skin: Negative for injury, rash, and discoloration, Neuro: Negative for headache, weakness, numbness, tingling, and seizure, Psych: Negative for depression, anxiety, suicide ideation, homicidal ideation, and hallucinations, Allergy/Immunology: Negative for hives, rash, and allergies, Endocrine: Negative for neck swelling, polydipsia, polyuria, polyphagia, and marked weight changes, Hematologic/Lymphatic: Negative for swollen nodes, abnormal bleeding, and unusual bruising. Exam: 00:45 Constitutional: This is a well developed, well nourished patient who is awake, alert, mh7 and in no acute distress. Head/Face: Normocephalic, atraumatic. Eyes: Pupils equal round and reactive to light, extra-ocular motions intact. Lids and lashes normal. Conjunctiva and sclera are non-icteric and not injected. Cornea within normal limits. Periorbital areas with no swelling, redness, or edema. Neck: Trachea midline, no thyromegaly or masses palpated, and no cervical lymphadenopathy. Supple, full range of motion without nuchal rigidity, or vertebral point tenderness. No Meningismus. Chest/axilla: Normal chest wall appearance and motion. Nontender with no deformity. No lesions are appreciated. Cardiovascular: Regular rate and rhythm with a normal S1 and S2. No gallops, murmurs, or rubs. Normal PMI, no JVD. No pulse deficits. 00:45 Back: No spinal tenderness. No costovertebral tenderness. Full range of motion. Skin: Warm, dry with normal turgor. Normal color with no rashes, no lesions, and no evidence of cellulitis. Neuro: Awake and alert, GCS 15, oriented to person, place, time, and situation. Cranial nerves II-XII grossly intact. Motor strength 5/5 in all extremities. Sensory grossly intact. Cerebellar exam normal. Normal gait. Psych: Awake, alert, with orientation to person, place and time. Behavior, mood, and affect are within normal limits. 00:45 Cardiovascular: Edema: 3+ edema to level of left leg and right leg, pedal edema, that is moderate. 00:45 Respiratory: the patient does not display signs of respiratory distress, Respirations: normal, Breath sounds: rhonchi, that are mild, are scattered, Respiratory rate: 18 00:45 Abdomen/GI: Inspection: distension, that is moderate, Bowel sounds: normal, in all quadrants, Palpation: nontender, in all quadrants, Indicators: McBurney's point is not tender, Rushing's sign is negative, Rovsing's sign is negative, Obturator sign is negative, Psoas sign is negative, Liver: no appreciated palpable abnormalities, Hernia: not appreciated. 00:45 Musculoskeletal/extremity: Extremities: noted in the right leg and left leg: swelling, ROM: intact in all extremities, Circulation is intact in all extremities. Sensation intact. Compartment Syndrome exam of affected extremity: is normal. no pain, no numbness, no tingling, no sensation deficit, no palor, no weak pulses, Joints: All joints appear normal with full range of motion. Weight bearing: can bear weight with assistance only, uses walker, Tendon exam: specific tendon testing normal through active and passive range of motion DVT Exam: no pain, no tenderness, negative Homans' sign noted on exam, no appreciated bluish discoloration, no erythema, no increased warmth, Calves: are non-tender, have equal circumference. 01:00 ECG was reviewed by the Attending Physician. [facility] Vital Signs: 02/02 23:29 BP 142 / 87; Pulse 99; Resp 18; Pulse Ox 99% on R/A; Weight 107.95 kg; Height 5 ft. 9 vc1 in. (175.26 cm); 02/03 02:58 BP 139 / 81 LA Sitting (auto/reg); Pulse 96 MON; Resp 18 S; Pulse Ox 96% on R/A; sv1 02/02 23:29 Body Mass Index 35.15 (107.95 kg, 175.26 cm) vc1 MDM: 02:16 Differential diagnosis: Cellulitis, pedal edema, CHF exacerbation, anasarca. Data [facility] reviewed: vital signs, nurses notes, old medical records, lab test result(s), cardiac enzymes, CBC, electrolytes, urinalysis, EKG, radiologic studies, plain films. Data interpreted: Pulse oximetry: on room air is 99 %. Interpretation: normal. Counseling: I had a detailed discussion with the patient and/or guardian regarding: the historical points, exam findings, and any diagnostic results supporting the discharge/admit diagnosis, the presence of at least one elevated blood pressure reading (>120/80) during this emergency department visit, lab results, radiology results, the need for further work-up and treatment in the hospital. Response to treatment: the patient's symptoms have mildly improved after treatment. 02:19 Patient medically screened. [facility] 02/03 00:28 Order name: Basic Metabolic Panel [facility] 02/03 00:28 Order name: CBC with Diff [facility] 02/03 00:28 Order name: LFT's [facility] 02/03 00:28 Order name: Magnesium [facility] 02/03 00:28 Order name: NT PRO-BNP [facility] 02/03 00:28 Order name: PT-INR; Complete Time: 01:47 [facility] 02/03 00:28 Order name: Troponin HS [facility] 02/03 00:28 Order name: Basic Metabolic Panel [facility] 02/03 00:28 Order name: CBC with Automated Diff; Complete Time: 01:47 [facility] 02/03 00:28 Order name: Liver (Hepatic) Function [facility] 02/03 00:29 Order name: COVID-19/FLU A+B/RSV (Document "Date of Onset" if Symptomatic); Complete [facility] Time: 01:52 02/03 02:49 Order name: Uric Acid [facility] 02/03 00:28 Order name: XRAY Chest (1 view) [facility] 02/03 00:28 Order name: EKG; Complete Time: 00:29 [facility] 02/03 00:28 Order name: Cardiac monitoring; Complete Time: 01:12 [facility] 02/03 00:28 Order name: EKG - Nurse/Tech; Complete Time: 01:01 [facility] 02/03 00:28 Order name: IV Saline Lock; Complete Time: 01: [facility] 02/03 00:28 Order name: Labs collected and sent; Complete Time: : [facility] 02/03 00:28 Order name: O2 Per Protocol; Complete Time: 01: [facility] 02/03 00:28 Order name: O2 Sat Monitoring; Complete Time: 01: [facility] 02/03 00:28 Order name: Urine Dipstick-Ancillary (obtain specimen) [facility] 02/03 02:49 Order name: Creatine Phosphokinase EDAR EC:00 Rate is 100 beats/min. Rhythm is regular, Sinus Rhythm with Right bundle branch block. [facility] QRS is negative in leads II, III, aVF, V4, V5, V6. MI interval is shortened at 106 msec. QRS interval is normal. QT interval is normal. Q waves are Old in leads II, III, aVF. T waves are Normal. No ST changes noted. Clinical impression: Abnormal EKG without significant change. Administered Medications: 02:41 Drug: Gabapentin 300 mg Route: PO; sv1 03:59 Follow up: Response: No adverse reaction sv1 03:20 Drug: Lasix (furosemide) 60 mg Route: IVP; Site: right antecubital; sv1 Disposition Summary: 02/03/22 02:19 Hospitalization Ordered Hospitalization Status: Inpatient Admission [facility] Provider: Isaías Schroeder [facility] Location: Telemetry/MedSurg (Inpatient) [facility] Condition: Stable [facility] Problem: an acute exacerbation [facility] Symptoms: have improved [facility] Bed/Room Type: Standard [facility] Room Assignment: 221(02/03/22 02:44) 1 Diagnosis - Anasarca [facility] - Acute on chronic combined systolic (congestive) and diastolic (congestive) heart [facility] failure - Chronic kidney disease, unspecified [facility] Forms: - Medication Reconciliation Form [facility] - SBAR form [facility] Signatures: Dispatcher [employer] EDAR Erika Martinez RN RN eb1 Maximus Nicholas MD MD 7 Alton Denton RN RN sv1 Rima Fox RN RN vc1 Corrections: (The following items were deleted from the chart) 02/02 23:39 23:33 Home Meds: clopidogrel 75 mg Oral tab 1 tab once daily; vc1 vc1 03/07 02:44 02:19 [facility] 02:48 02:43 CREATINE PHOSPHOKINASE+C.LAB.BRZ ordered. EDMS EDMS 02:48 02:43 URIC ACID+C.LAB.BRZ ordered. EDMS EDMS
[2022-02-03] MEDS ORDERED: GABAPENTIN 300 MG CAP ONE (02:41)
[2022-02-03] MEDS ORDERED: FUROSEMIDE 100 MG/10 ML VIAL IV ONE (02:52)
--- NOTE | 2022-02-03 02:53 | P.HP ---
Certification for Inpatient Patient admitted to: Inpatient With expected LOS: >2 Midnights Patient will require the following post-hospital care: None Practitioner: I am a practitioner with admitting privileges, knowledge of patient current condition, hospital course, and medical plan of care. Services: Services provided to patient in accordance with Admission requirements found in Title 42 Section 412.3 of the Code of Federal Regulations Patient History Date of Service: 02/03/22 Reason for admission: CHF exacerbation, ARF History of Present Illness: 76-year-old male with history of chronic systolic congestive heart failure, diabetes mellitus type 2insulin-dependent, atrial fibrillation no longer on chronic anticoagulation therapy, hypertension, CKD 2 presented to the emergency department for generalized swelling. Patient reports weight gain of approximately 25 pounds over the course of the last 2 to 3 weeks. Patient denies any changes in his medications reports he is been taking Lasix 40 mg daily, does pay attention to his fluid intake. He does admit to taking naproxen daily as well for neuropathic pain related to a stroke. Patient was evaluated in the emergency department found to be in acute renal failure as well as having significant elevated BNP. Patient with anasarca as well. 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 Allergies levofloxacin [From Levaquin] Allergy (Verified 12/19/18 21:17) Itching Home Medications: Atorvastatin Calcium 40 mg PO DAILY 05/22/19 Furosemide [Lasix] 40 mg PO DAILY 05/22/19 Gabapentin 300 mg PO BID 05/22/19 Glimepiride 4 mg PO DAILY 05/22/19 Metformin HCl [Glucophage] 1,000 mg PO BID 05/22/19 Rivaroxaban [Xarelto*] 20 mg PO DAILY 05/22/19 Sacubitril/Valsartan [Entresto 49 mg-51 mg Tablet] 1 tab PO BID 05/22/19 carvediloL [Coreg] 3.125 mg PO BID 05/22/19 Acetaminophen [Tylenol] 325 mg PO TID 15 Days #60 capsule 05/23/19 - Past Medical/Surgical History Diabetic: Yes -: CVA -: HTN -: CHFsystolic -: neuropathy -: degenerative disc -: hyperlipidemia -: NIDDM -: BRAINSTEM STROKE 1998 -: hernia repair -: tonsillectomy -: adenoidectomy -: Left shoulder repair -: umbilical hernia repair Psychosocial/ Personal History: Lives at home with family - Family History Father -: Cancer, Other (see notes) Notes: lymphoma Brother -: Lung disease, Cancer Sister -: Lung disease - Social History Smoking Status: Current every day smoker Counseled patient to stop smoking for: less than 10 minutes Smoking therapy provided: No (Patient declined) Alcohol use: Yes CD- Drugs: No Caffeine use: Yes Place of Residence: Home Review of Systems 10-point ROS is otherwise unremarkable General: Other (Weight gain) Respiratory: Cough, Shortness of Breath Cardiovascular: Edema Physical Examination - Physical Exam General: Alert, In no apparent distress, Oriented x3 HEENT: Atraumatic, PERRLA, Mucous membr. moist/pink, EOMI, Sclerae nonicteric Neck: Supple, 2+ carotid pulse no bruit, No LAD, Without JVD or thyroid abnormality Respiratory: Crackles/rales Cardiovascular: Regular rate/rhythm, Normal S1 S2, Edema Capillary refill: <2 Seconds Gastrointestinal: Normal bowel sounds, No tenderness Musculoskeletal: No tenderness Integumentary: No rashes Neurological: Normal speech, Normal strength at 5/5 x4 extr, Normal tone, Normal affect Lymphatics: No axilla or inguinal lymphadenopathy - Studies Laboratory Data (last 24 hrs) 02/03/22 00:12: PT 13.4 H, INR 1.16 02/03/22 00:12: WBC 6.50, Hgb 13.3 L, Hct 41.0, Plt Count 115 L 02/03/22 00:12: Sodium 141, Potassium 4.9, BUN 38 H, Creatinine 2.34 H, Glucose 173 H, Magnesium 1.8, Total Bilirubin 0.9, AST 17, ALT 18, Alkaline Phosphatase 99 Assessment and Plan - Plan Assessment: Dyspnea, anasarca secondary to acute on chronic systolic congestive heart failure Acute renal failure with underlying CKD 2 Diabetes type 2insulin-dependent History of atrial fibrillation no longer on chronic anticoagulation Hypertension Hyperlipidemia History of CVA with neuropathy Plan: Dyspnea, anasarca secondary to acute on chronic systolic congestive heart failure: Lasix 40 mg IV 3 times daily, strict intake/output, 1500 cc/day fluid striction, daily weights. Last echocardiogram 2019 EF 31% repeat echocardiogram ordered. Cardiology consulted given significant anasarca and addition of renal failure, patient currently on Entresto will need to hold at this time. Acute renal failure with underlying CKD 2: Nephrology consulted, renal ultrasound ordered. Possibly CRS, also admits to taking naproxen daily for neuropathic pain after stroke. Instructed patient to discontinue taking NSAIDs. Diabetes type 2insulin-dependent: ACH S Accu-Chek, sliding scale insulin. 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 Currently in sinus rhythm, he was also taken off of sotalol. Monitor on telemetry. Carvedilol continued. Hypertension: Home medications have been continued. Hyperlipidemia: Atorvastatin continued History of CVA with neuropathy: Aspirin, gabapentin continued. DVT PPX: Heparin Code status: Full Discharge Plan: Home Plan to discharge in: 72 Hours - Advance Directives Does patient have a Living Will: Yes Does patient have a Durable POA for Healthcare: Yes - Code Status/Comfort Care Code Status Assessed: Yes (Full) Critical Care: No Time Spent Managing Pts Care (In Minutes): 55
[2022-02-03 03:01] LABS: Uric Acid 10.1 mg/dL (3.5-7.2)
[2022-02-03] MEDS ORDERED: HYDROCODONE/APAP 5/325 MG TAB PO PRN (04:37)
[2022-02-03] MEDS ORDERED: GABAPENTIN 300 MG CAP PO PRN (04:37)
[2022-02-03] MEDS ORDERED: ONDANSETRON 4 MG/2 ML VIAL IV PRN (04:37)
[2022-02-03 05:08] VITALS: BMI 35.1
[2022-02-03] MEDS: carvediloL 3.125 MG TAB PO SCH ×2 (05:19→17:25)
--- NOTE | 2022-02-03 07:28 | RAD REPORT ---
EXAM DESCRIPTION: US - Renal Ultrasound-Complete - 02/03/2022 5:50 am CLINICAL HISTORY: ARF COMPARISON: CT ABD PELVIS W CONTRAST dated 11/11/2015 FINDINGS: The right kidney measures 11.5 x 5.5 x 5.6 cm. The left kidney measures 11.6 x 6.4 x 4.8 cm. Renal cortical thickness is normal range. There is increased cortical echogenicity which could be medical renal disease, body habitus artifact or a combination. No hydronephrosis or suspicious renal mass. Punctate nonobstructing calyx calculi noted on the left. Similar calculi were seen on the 2015 study. No bladder wall thickening or mass. No intraluminal stone or mass. IMPRESSION: No hydronephrosis or suspicious renal mass. Increased cortical echogenicity seen in each kidney could be made medical renal disease, body habitus artifact or a combination. Nonobstructing punctate calyx calculi on the left, similar to 2015 CT study.
[2022-02-03] MEDS ORDERED: PNEUMOCOCCAL VACCINE 0.5 ML IMVAC ONE (08:00)
[2022-02-03] MEDS ORDERED: INFLUENZA VACCINE (for 6+ mo) 0.5 ML DOSE IMVAC ONE (08:00)
--- NOTE | 2022-02-03 08:50 | RAD REPORT ---
EXAM DESCRIPTION: RAD - Chest Single View - 02/03/2022 1:02 am CLINICAL HISTORY: SWELLING COMPARISON: Portable 05/21/2019 TECHNIQUE: AP portable chest image was obtained 02/03/2022 1:02 am . FINDINGS: No peripheral mass or consolidation. Retrocardiac left base assessment is limited on this portable examination. Upper lobe vasculature within normal limits. Cardiomegaly is present matching c omparison. Interstitial pattern is not significantly different from comparison. Lung volumes are low. No measurable pleural effusion and no pneumothorax. No acute bony abnormality seen. No acute aortic f indings suspected. IMPRESSION: Prominent interstitial pattern matches comparison. No peripheral mass or consolidation. Large cardiac silhouette similar to comparison. Baseline presentation could mask mild interstitial edema or interstitial infiltrate.
[2022-02-03] MEDS: HEPARIN 5000 UNIT/ML 1 ML VIAL SQ SCH ×2 (09:15→21:12)
[2022-02-03] MEDS: ASPIRIN EC 81 MG TAB PO SCH (09:15)
[2022-02-03] MEDS: FUROSEMIDE 40 MG/4 ML VIAL IV SCH ×2 (09:15→17:24)
--- NOTE | 2022-02-03 11:12 | CON ---
Date of Consultation: 02/03/[address] Schroeder with congestive heart failure on 02/03/2022. I saw the patient on 02/03/2022. History Of Present Illness: Mr. Reyna is 76. Has a history of congestive heart failure, chronic systolic with an ejection fraction of 35%. He has had a history of CVA, diabetes, hyperlipidemia, rh eumatoid arthritis, and peripheral neuropathy. Came in with congestive heart failure symptom, PND, o rthopnea, pedal edema. No palpitation. No syncope. No fever. No chills. No chest pain reported. He was found to have a creatinine of 2.34. His BNP was 3531. Chest x-ray showed CHF. Past Medical History: As stated above. Allergies: INCLUDE LEVAQUIN. Review of Systems: Negative. Social History: Negative. Family History: Negative. Medications: At home include Lipitor, Lasix, Neurontin, glimepiride, Xarelto, metformin, Entresto 49 /51, and Coreg 3.125 mg b.i.d. Physical Examination: General: He was in mild respiratory distress. Vital Signs: Stable. He was afebrile. He was in sinus rhythm. HEENT: Negative. Neck: Supple with no bruit. Chest: Clear on the right. On the left, he has some wheezes. Cardiac: Revealed a regular rhythm and rate with S3 gallops. No murmurs or rubs. Abdomen: Benign. Extremities: Revealed 1+ edema. Neurologic: Nonfocal. Skin: Dry and intact. Pulses were present distally bilaterally. Diagnostic Data: As stated above. Impression And Plan: 1.Acute on chronic systolic congestive heart failure, ejection fraction 35% in 2019. Another echoca rdiogram is pending. 2.Renal failure, stage IV. Renal consultation with Dr. Tolliver has been obtained. 3.Cerebrovascular accident history. 4.Paroxysmal atrial fibrillation, on Xarelto. 5.Diabetes. 6.Dyslipidemia. 7.Rheumatoid arthritis. 8.Neuropathy. Mr. Reyna's main problem is his combination of acute on chronic systolic congestiv e heart failure and acute renal failure. I will discuss the case with Dr. Tolliver further regarding his medical regimen. I am not so sure we can keep him on the Entresto with such creatinine. We may have to increase his Lasix dose, double up his carvedilol, continue the Xarelto, maybe hold metformi n. We will see what the echocardiogram shows. We will continue to follow him. JOS/GUERA Voice ID: [id number] Report ID: [id number]
[2022-02-03] MEDS ORDERED: GLUCAGON 1 MG/VIAL IM PRN (14:05)
--- NOTE | 2022-02-03 14:14 | ECHO ---
HEIGHT: 5 ft 8 in WEIGHT: 231 lb 0 oz DATE OF STUDY: 02/03/[address]: Jhoan Hicks MD 2-DIMENSIONAL: YES M.MODE: YES DOPPLER: YES COLOR FLOW: YES TDS: NO PORTABLE: NO DEFINITY: NO BUBBLE STUDY: NO DIAGNOSIS: CONGESTIVE HEART FAILURE CARDIAC HISTORY: CATHERIZATION: SURGERY: PROSTHETIC VALVE: PACEMAKER: MEASUREMENTS (cm) DIASTOLIC (NORMALS) SYSTOLIC (NORMALS) IVSd 1.1 (0.6-1.2) LA Diam 3.6 (1.9-4.0) LVEF 25-30% LVIDd 5.2 (3.5-5.7) LVIDs 4.8 (2.0-3.5) %FS 7% LVPWd 1.2 (0.6-1.2) Ao Diam 3.2 (2.0-3.7) 2 DIMENSIONAL ASSESSMENT: RIGHT ATRIUM: ENLARGED LEFT ATRIUM: NORMAL RIGHT VENTRICLE: NORMAL LEFT VENTRICLE: SEVERELY DEPRESSED TRICUSPID VALVE: MITRAL VALVE: PULMONIC VALVE: NORMAL AORTIC VALVE: PERICARDIAL EFFUSION: NONE AORTIC ROOT: NORMAL LEFT VENTRICULAR WALL MOTION: SEVERE GLOBAL HYPOKINESIS. DOPPLER/COLOR FLOW: SEE BELOW. COMMENTS: SEVERELY DEPRESSED LEFT VENTRICULAR EJECTION FRACTION 25-30%. SEVERE GLOBAL HYPOKINESIS. MILD MITRAL, TRICUSPID AND AORTIC REGURGITATION. SEVERE PULMONARY HYPERTENSION WITH RIGHT VENTRICULAR SYSTOLIC PRESSURE OF > 60 mmHg. TECHNOLOGIST: Noman MUNOZ
[2022-02-03] MEDS ORDERED: D10W 250 ML BAG IV PRN (14:16)
[2022-02-03] MEDS: INSULIN -REGULAR HUMAN 50 UNIT/0.5 ML ML SQ SCH ×2 (17:15→21:00)
[2022-02-03] MEDS: ACETAMINOPHEN 500 MG TAB PO PRN (18:56)
[2022-02-03] MEDS ORDERED: ATORVASTATIN 40 MG TAB PO SCH (21:00)
[2022-02-04] MEDS: FUROSEMIDE 40 MG/4 ML VIAL IV SCH ×3 (01:06→16:31)
--- NOTE | 2022-02-04 01:24 | CON ---
Date of Consultation: 02/03/2022 Chief Complaint: Acute kidney injury, cardiorenal syndrome, congestive heart failure, fluid overload. History Of Present Illness: Patient was admitted to the hospital because of congestive heart failure exacerbation. He was found to have acute kidney injury. Patient has nonoliguric urine output. Currently, he is on diuretic for volume control to treat fluid overload and provide management of congestive heart failure. Patient is a 76-year-old man with history of chronic systolic congestive heart failure, diabetes mellitus type 2, atrial fibrillation, hypertension, chronic kidney stage 2, although renal function has declined. Patient gained at least 25 pounds over last 2-3 weeks. He has significant edema with difficulty with ambulation. He was taking Lasix 40 mg a day, although he was not compliant with low-sodium diet. Also, he was taking naproxen for neuropathic pain related to previous stroke. Blood work done in the emergency room revealed elevated BNP and elevated creatinine level. The patient has history of systolic dysfunction previously done echo in 2019 demonstrated an ejection fraction of 31%. Review of Systems: General: Denies fever, chills, syncope. Eyes: Denies new vision changes. Ears, Nose, Mouth and Throat: Denies sore throat, earache. Respiratory: Has shortness of breath with activities. GI: Denies nausea, vomiting. : Denies dysuria, hematuria. Musculoskeletal: Denies muscle aches, joint swelling, although he has some neuropathic pain and was taking nonsteroidal anti-inflammatory medication. All other systems reviewed and all are negative. Past Medical History: Hypertension, diabetes mellitus, CVA, chronic kidney disease stage 2, hyperlipidemia, brain stem stroke, hernia repair, tonsillectomy, adenoidectomy, left shoulder repair, umbilical hernia repair. Family History: Father; cancer, he had lymphoma. Brother, lung cancer. Sister, lung cancer. Social History: He is active smoker. Denies alcohol, denies drugs. Physical Examination: General: Patient is alert and oriented x3. Eyes: Anicteric. Sclerae EOMI. Ears, Nose, Mouth and Throat: Oral mucosa moist. No pallor. Neck: Supple, no bruits. Lungs: Few rhonchi. Heart: S1, S2. Abdomen: Soft, benign. Extremities: Edema present in both legs. Neurologic: Moving extremities, cranial nerves intact. No tremor. Laboratory Data: Blood work; PT 13.4, INR 1.16. WBC 6.5, platelet count 116,000, hemoglobin 13.3. Sodium 141, potassium 4.9, glucose 173, creatinine 2.34, and magnesium 1.8. Kidney ultrasound showed right kidney 11.5 cm in length, left kidney 11.6 cm in length. Renal cortical thickness is normal range. There is increased cortical echogenicity, which could be medical renal disease or body habitus artifact or combination. No hydronephrosis. There is nonobstructing calculi noted in the left kidney. Impression And Plan: 1. Acute on chronic kidney injury. Patient has history of diabetes mellitus. He presented to the hospital because of fluid overload, edema, shortness of breath. Patient is on Lasix for volume control and for congestive heart failure treatment. 2. Acute kidney injury related to cardiorenal syndrome. Continue diuretic for volume control. The patient will continue low-sodium diet to prevent fluid overload. Patient was started on Lasix IV 3 times per day. Continue to monitor intake and output. 3. Systolic dysfunction, ejection fraction 31%. Continue beta bo for congestive heart failure. 4. Diabetes mellitus. The patient is not a good candidate for metformin. Never has metformin in this particular patient. 5. Hyperlipidemia. Continue atorvastatin. Monitor CK level to rule out rhabdomyolysis. 6. History of kidney stone. Patient had a renal ultrasound, did not show obstructive uropathy. Further recommendation as per stone management can be done outpatient and the patient will require additional workup. MAAME/GUERA Voice ID: [id number] Report ID: [id number] UYNG
[2022-02-04 05:52] LABS: Absolute Lymphocytes (CBC) 1.6 K/uL (0.7-4.9); Hematocrit 43.5 % (39.6-49.0); Lymphocytes % 26.6 % (15.3-44.8); MPV 9.4 fL (7.6-11.3); RBC Red Blood Cell Count 4.64 M/uL (4.33-5.43)
[2022-02-04] MEDS: carvediloL 3.125 MG TAB PO SCH ×2 (06:12→17:00)
[2022-02-04 06:16] LABS: Albumin 3.6 g/dL (3.4-5.0); Potassium 5.1 mmol/L (3.5-5.1); Protein, Total 7.2 g/dL (6.4-8.2); Thyroid Stimulating Hormone 2.63 uIU/mL (0.360-3.740)
[2022-02-04] MEDS: ACETAMINOPHEN 500 MG TAB PO PRN (06:24)
[2022-02-04] MEDS: INSULIN -REGULAR HUMAN 50 UNIT/0.5 ML ML SQ SCH ×3 (07:30→16:32)
[2022-02-04] MEDS: ASPIRIN EC 81 MG TAB PO SCH (08:45)
[2022-02-04] MEDS: HEPARIN 5000 UNIT/ML 1 ML VIAL SQ SCH (08:45)
[2022-02-04 10:41] VITALS: O2SAT 96
[2022-02-04 15:52] LABS: Potassium 4.5 mmol/L (3.5-5.1)
--- NOTE | 2022-02-04 15:52 | P.PN ---
Subjective Date of Service: 02/04/22 Chief Complaint: CHF exacerbation, ARF Subjective: Other (He reports having less shortness of breath today.) Physical Examination - Vital Signs Temperature: 97.0 F Blood Pressure: 150/98 Pulse: 100 Respirations: 18 Pulse Ox (%): 97 - Physical Exam General: Other (Appears as his stated age) HEENT: Atraumatic, Normocephalic Neck: Supple, JVD not distended Respiratory: Other (symmetric chest expansion) Cardiovascular: No rubs, No murmurs Gastrointestinal: Soft and benign, No guarding Musculoskeletal: No clubbing Integumentary: No warmth Neurological: Normal speech, Normal tone Lymphatics: No axilla or inguinal lymphadenopathy Urinary: Other (no bladder distention) External genitalia: Deferred Rectal: Deferred Assessment And Plan - Plan 1. Acute on chronic kidney injury 2/2 CRS. Patient has history of diabetes mellitus. He presented to the hospital because of fluid overload, edema, shortness of breath. Patient is on Lasix for volume control and for congestive heart failure treatment. SCr at 2.5 today. Langston po fluid intake unless he develops hyponatremia < 130 meq/L. 2. Acute on chronic CHF. Has systolic dysfunction, ejection fraction 31%. Continue beta bo. Switch lasix IV to 80 mg po bid. Continue low-sodium diet. 3. Diabetes mellitus. Avoid metformin 2/2 low GFR. 4. Hyperlipidemia. Continue atorvastatin. 5. History of kidney stone. Patient had a renal ultrasound, did not show obstructive uropathy. Further recommendation as per stone management can be done outpatient and the patient will require additional workup. 6. Dispo. May dc to home today. F/u in kidney clinic in 1-2 wks.
--- NOTE | 2022-02-04 17:15 | P.DS ---
Admission Date: 02/03/22 Discharge Date: 02/04/22 Disposition: ROUTINE DISCHARGE Discharge Condition: FAIR Reason for Admission: CHF exacerbation, ARF Consultations: Cardiology-Dr. Hicks Nephrology-Dr. Tolliver. - Problems (1) Acute worsening of stage 3 chronic kidney disease Current Visit: Yes Status: Acute (2) Atrial fibrillation Current Visit: No Status: Acute Qualifiers: Atrial fibrillation type: unspecified Qualified Code(s): I48.91 - Unspecified atrial fibrillation (3) Diabetes mellitus Onset Date: 04/11/16 Current Visit: No Status: Acute Qualifiers: Diabetes mellitus type: type 2 Diabetes mellitus fpc insulin use: without fpc use Diabetes mellitus complication status: without complication Qualified Code(s): E11.9 - Type 2 diabetes mellitus without complications (4) HTN (hypertension) Current Visit: No Status: Acute Qualifiers: Hypertension type: essential hypertension Qualified Code(s): I10 - Essential (primary) hypertension Brief History of Present Illness: 76-year-old male with history of chronic systolic congestive heart failure, diabetes mellitus type 2insulin-dependent, atrial fibrillation no longer on chronic anticoagulation therapy, hypertension, CKD 2 presented to the emergency department for generalized swelling. Patient reports weight gain of approximately 25 pounds over the course of the last 2 to 3 weeks. Patient denies any changes in his medications reports he is been taking Lasix 40 mg eric y, does pay attention to his fluid intake. He does admit to taking naproxen daily as well for neuropathic pain related to a stroke. Patient was evaluated in the emergency department found to be in acute renal failure as well as having significant elevated BNP. Patient with anasarca as well. 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 Hospital Course: Patient admitted to the medical floor and treated for CHF exacerbation with IV Lasix. Noted patient has renal insufficiency. Serum creatinine elevated compared to baseline. IV Lasix was titrated to 40 mg every 8 hours. Patient shortness of breath and lower extremity edema improved significantly with treatment. He was seen in consultation by cardiology Dr. Hicks who recommended medical management and medication adjustment. He recommended against continuing Entresto given his worsening renal function. Metformin also discontinued. Echocardiogram done showed EF of 31%. Patient seen by nephrology who assisted with management. Patient want to go home today. He stated he has improved to baseline. Case discussed with nephrology-Dr. Silva who will follow with patient in the office regarding his renal function. Oral Lasix 80 mg twice daily recommended by nephrology. Patient is discharged to home per his request. Vital Signs/Physical Exam: Temp Pulse Resp BP Pulse Ox 97.7 F 103 H 19 132/76 97 02/04/22 16:00 02/04/22 16:31 02/04/22 16:00 02/04/22 16:31 02/04/22 16:00 General: Alert, In no apparent distress, Oriented x3, Obese Neck: JVD not distended Respiratory: Clear to auscultation bilaterally, Normal air movement Cardiovascular: Regular rate/rhythm, Normal S1 S2, Edema (Trace bilateral lower extremity edema) Gastrointestinal: Soft and benign, Non-distended, No tenderness Musculoskeletal: No swelling Integumentary: No rashes, No cyanosis Neurological: Normal strength at 5/5 x4 extr Laboratory Data at Discharge: WBC 5.90 K/uL (4.3-10.9) 02/04/22 05:36 Hgb 14.0 g/dL (13.6-17.9) 02/04/22 05:36 Hct 43.5 % (39.6-49.0) 02/04/22 05:36 Plt Count 120 K/uL (152-406) L 02/04/22 05:36 PT 13.4 SECONDS (9.5-12.5) H 02/03/22 00:12 INR 1.16 02/03/22 00:12 Sodium 137 mmol/L (136-145) 02/04/22 15:26 Potassium 4.5 mmol/L (3.5-5.1) 02/04/22 15:26 BUN 44 mg/dL (7-18) H 02/04/22 15:26 Creatinine 2.46 mg/dL (0.55-1.3) H 02/04/22 15:26 Glucose 264 mg/dL (74-106) H 02/04/22 15:26 Uric Acid Cancelled 02/03/22 02:43 Magnesium 1.8 mg/dL (1.8-2.4) 02/03/22 00:12 Total Bilirubin 1.0 mg/dL (0.2-1.0) 02/04/22 05:36 AST 14 U/L (15-37) L 02/04/22 05:36 ALT 18 U/L (12-78) 02/04/22 05:36 Alkaline Phosphatase 101 U/L (45-117) 02/04/22 05:36 Home Medications: Atorvastatin Calcium 40 mg PO DAILY 05/22/19 Gabapentin 300 mg PO BID 05/22/19 Glimepiride 4 mg PO DAILY 05/22/19 carvediloL [Coreg*] 3.125 mg PO BID 05/22/19 Acetaminophen [Tylenol] 325 mg PO TID 15 Days #60 capsule 05/23/19 Furosemide [Lasix] 40 mg PO BIDL #120 tab 02/04/22 Rivaroxaban [Xarelto] 15 mg PO DAILY #30 tablet 02/04/22 New Medications: Furosemide [Lasix] 40 mg PO BIDL #120 tab Rivaroxaban [Xarelto] 15 mg PO DAILY #30 tablet Diet: ADA Activity: Ad gaby Followup: Mala Silva [ACTIVE - CAN ADMIT] - 1 Week (Call and schedule appointment ) Victoria Menezes NP [Primary Care Provider] - 1-2 Weeks (Call and schedule appointment )
[2022-02-04] MEDS ORDERED: GABAPENTIN 300 MG CAP PO SCH (21:00)
[2022-02-04 23:15] VITALS: BP 150/98; TEMP 97
[2022-02-05] MEDS ORDERED: ATORVASTATIN 40 MG TAB PO SCH (09:00)
--- NOTE | 2022-02-05 11:29 | PN ---
Date of Progress Note: 02/04/2022 Mr. Reyna has chronic systolic congestive heart failure and noncompliant. Came in with congestive heart failure. Has been treated with IV Lasix and has improved dramatically. This morning, he is f eeling better. His O2 saturation is 96% on room air. He is not having any chest pain or shortness o f breath. His examination showed no rales, no edema. I would continue his present regimen, send him home on his home medication except for him to double his Lasix, and I will see him in the office in the very near future. JOS/GUERA Voice ID: [id number] Report ID: [id number]
== END 2022-02-04 19:45 | disposition home or self-care (01) ==
LOC: ER 23:19 → ERHOLD 02-03 01:38 → INTOOBSV 02-03 01:38 → 2ND 02-03 04:09
PROVIDERS: ADMIT Hospitalist; ATTEND Internal Medicine
DX: I13.0 Hypertensive heart and chronic kidney disease with heart failure and stage 1 through stage 4 chronic kidney disease, or unspecified chronic kidney disease (principal); E11.22 Type 2 diabetes mellitus with diabetic chronic kidney disease; I50.23 Acute on chronic systolic (congestive) heart failure; N18.30 Chronic kidney disease, stage 3 unspecified; N17.9 Acute kidney failure, unspecified; I48.0 Paroxysmal atrial fibrillation; E78.5 Hyperlipidemia, unspecified; N20.0 Calculus of kidney; M06.9 Rheumatoid arthritis, unspecified; G62.9 Polyneuropathy, unspecified; F17.210 Nicotine dependence, cigarettes, uncomplicated; Z71.6 Tobacco abuse counseling; Z91.19 Patient's noncompliance with other medical treatment and regimen; Z86.73 Personal history of transient ischemic attack (TIA), and cerebral infarction without residual deficits; Z79.4 Long term (current) use of insulin; Z79.899 Other long term (current) drug therapy; Z20.822 Contact with and (suspected) exposure to COVID-19; Z88.3 Allergy status to other anti-infective agents; Z80.7 Family history of other malignant neoplasms of lymphoid, hematopoietic and related tissues; Z80.1 Family history of malignant neoplasm of trachea, bronchus and lung
CPT/HCPCS: 93005; 93306; 85025 ×2; 80048 ×2; 36415 ×2; 83735; 82550; 85610; 82947 ×7; 80076; 84550; 84443; 84484; 84439; 80053; 83880; 0241U; 71045; 76770; 96374; 99285; J1940 ×5; J1644 ×3; G0378 ×3

== ENCOUNTER 2022-03-18 08:00 | Day surgery (SDC) | payer OTHER ==
[2022-03-13 10:36] LABS: Absolute Lymphocytes (CBC) 1.6 K/uL (0.7-4.9); Hematocrit 48.9 % (39.6-49.0); Lymphocytes % 26.5 % (15.3-44.8); MPV 9.7 fL (7.6-11.3); RBC Red Blood Cell Count 5.32 M/uL (4.33-5.43)
--- NOTE | 2022-03-13 10:46 | RAD REPORT ---
EXAM DESCRIPTION: RAD - Chest Pa And Lat (2 Views) - 03/13/2022 10:13 am CLINICAL HISTORY: pre procedureheart catheterization, hypertension COMPARISON: Portable 02/03/2022, portable 05/21/2019 TECHNIQUE: Frontal and lateral views of the chest were obtained. FINDINGS: The lungs are clear of peripheral mass or consolidation. Baseline prominent interstitial p attern is present. No acute failure or volume overload findings. Mild cardiomegaly is present but im proved from comparison. No vascular engorgement seen. Trachea is midline. No pleural effusion or pneu mothorax seen. No acute bony finding noted. No aortic abnormality. IMPRESSION: No acute lung parenchymal process seen. Cardiomegaly is mild and diminished from prior imaging. No acute failure or volume overload findings identifiable.
[~2022-03-18 08:00] MED LIST: ATROPINE SULF 1 MG/10 ML SYR IV ONE; FENTANYL CITR 100 MCG/2 ML ONE; MIDAZOLAM HCL 2 MG/2 ML INJ ONE; NA CHLORIDE 0.9% 0 ML ONE
[2022-03-18] MEDS ORDERED: NA CHLORIDE 0.9% 500 ML ONE (08:28)
[2022-03-18] MEDS ORDERED: HEPA 1000U/500MLS 2,000 UNIT/1,000 ML BAG IV ONE ×2 (08:43→10:23)
[2022-03-18] MEDS ORDERED: HEPARIN 5000 UNIT/ML 1 ML VIAL ONE (09:09)
[2022-03-18] MEDS ORDERED: MIDAZOLAM HCL 2 MG/2 ML INJ ONE (09:27)
[2022-03-18] MEDS ORDERED: LIDOCAINE 1% 20 ML MDV ONE (10:23)
[2022-03-18 10:40] VITALS: TEMP 97
[2022-03-18 11:42] VITALS: BP 136/74; O2SAT 100
--- NOTE | 2022-03-18 22:19 | OP ---
Surgeon: Jhoan Hicks MD Network Systems Consultant: Ms. Nathaly Mc. The patient will be a bedrest for 2 hours and he will go home after that and I will see him soon. No change in medical therapy at this point. Patient admitted to the civil laboratory technician as an outpatient on 03/18/2022. Procedure: Abdominal angiogram with runoff. Indication: Peripheral arterial disease. Procedure In Detail: Mr. Reyna is 76, known history of PAD, status post right SFA stent before th new-onset claudication, abnormal arterial Doppler, brought to the civil laboratory technician today as an outpatient, prepped and draped in the routine sterile fashion. Given Versed and fentanyl for sedation. A [facility] sheath introduced in the right common femoral artery successfully. Angiography there was normal. Angio-Seal was used to close the case. A pigtail catheter was advanced above the renals in the dis darlin aorta. Abdominal angiogram with runoff was done without any complications. The patient was foun d to have normal renals. A very tortuous aorta secondary to scoliosis. He had moderate plaquing in the right common iliac artery, common femoral artery. He had a 50% stenosis in the left SFA with dif fuse plaquing throughout. He had a patent right SFA stent. The anterior tibial, the popliteal were normal. The peroneal arteries were normal. He had 100% occlusion of bilateral posterior tibial nicko lewis. There were no complications. Blood Loss: 5 mL. The patient tolerated the procedure well. Postoperative Diagnosis: Severe peripheral arterial disease. Plan: We will continue medical therapy. Patient will resume Xarelto tomorrow. Total Conscious Sedation: 45 minutes. NB/MODL Voice ID: [id number] Report ID: [id number]
== END 2022-03-18 12:25 | disposition home or self-care (01) ==
LOC: CCL 08:00
DX: I70.213 Atherosclerosis of native arteries of extremities with intermittent claudication, bilateral legs (principal); I70.92 Chronic total occlusion of artery of the extremities; I65.23 Occlusion and stenosis of bilateral carotid arteries; I25.10 Atherosclerotic heart disease of native coronary artery without angina pectoris; I13.0 Hypertensive heart and chronic kidney disease with heart failure and stage 1 through stage 4 chronic kidney disease, or unspecified chronic kidney disease; E11.22 Type 2 diabetes mellitus with diabetic chronic kidney disease; N18.4 Chronic kidney disease, stage 4 (severe); I50.23 Acute on chronic systolic (congestive) heart failure; I48.0 Paroxysmal atrial fibrillation; E78.2 Mixed hyperlipidemia; E11.9 Type 2 diabetes mellitus without complications; G62.9 Polyneuropathy, unspecified; M06.9 Rheumatoid arthritis, unspecified; M41.9 Scoliosis, unspecified; M15.0 Primary generalized (osteo)arthritis; Z95.820 Peripheral vascular angioplasty status with implants and grafts; Z86.73 Personal history of transient ischemic attack (TIA), and cerebral infarction without residual deficits; Z79.01 Long term (current) use of anticoagulants; Z79.84 Long term (current) use of oral hypoglycemic drugs; Z79.899 Other long term (current) drug therapy; Z88.3 Allergy status to other anti-infective agents; Z20.822 Contact with and (suspected) exposure to COVID-19
CPT/HCPCS: 93005; 85025; 80048; 36415; 85610; 82947; 85730; 71046; 75630; 36245; U0003; C1893; C1760; G0269; J2250 ×2; J3010; J7040; J1644 ×2; 36200; J0583